=== PATIENT | male | born 1935 | race Hispanic/Latino ===

== ENCOUNTER 2016-08-14 19:09 | Inpatient (IN) | payer MEDICARE, OTHER ==
[~2016-08-14] VITALS: Ht 170.2 cm; Wt 68.5 kg
[2016-08-14 19:23] VITALS: BP 166/61; PULSE 51; RESP 16; O2SAT 98
[2016-08-14 19:29] VITALS: BP 166/61; PULSE 54; RESP 18; O2SAT 98
--- NOTE | 2016-08-14 21:02 | ED.REPORT ---
HPI-Abd Pain M 40 and Over Date of Service Aug 14, 2016 ED Provider: Dr. Rick Gamez M.D. An 81 year old male with metastatic prostate cancer presents to the ED via EMS with constipation worsening two days ago. The patient also reports nausea, abdominal pain, lower back pain, loss of appetite, and reduced liquid intake. He denies hematuria, dysuria, hematochezia, recent injury/trauma, or other symptoms. The patient has taken stool softeners with no relief. He normally takes chronic pain medication but has not been doing so over the past two days. EMS found the patient with a BP of 153/64 and otherwise normal vital signs. He is visiting the area from [place]. Nursing Notes Stated Complaint: LOW BACK PAIN Chief Complaint: Male Abdominal Pain Nursing Notes Reviewed: Yes Allergies: Coded Allergies: No Known Allergies (Unverified , 08/14/16) Scheduled Abiraterone Acetate (Zytiga) 250 Mg Tablet 1,000 MG PO DAILY Aspirin (Aspirin) 81 Mg Tablet 81 MG PO DAILY Fluticasone Propionate (Fluticasone Propionate) 50 Mcg/Actuation [place].susp 15.8 ML NS DAILY Hydrochlorothiazide (Hydrochlorothiazide) 25 Mg Tablet 25 MG PO DAILY Latanoprost (Latanoprost) 2.5 Ml Drops 1 GTT BOTH_EYES HS [place]-3 Fatty Acids (Fish Oil) 500 Mg Capsule.dr 2,000 MG PO BID Oxybutynin Chloride (Oxybutynin Chloride) 5 Mg Tablet 5 MG PO TID Potassium Chloride (Potassium Chloride) 20 Meq Tab.er.prt 40 MEQ PO DAILY TAKE WITH FOOD Prednisone (PredniSONE) 5 Mg Tab 5 MG PO BID Simvastatin (Simvastatin) 40 Mg Tablet 40 MG PO HS Tamsulosin (Flomax) 0.4 Mg Capsule 0.8 MG PO HS Valsartan (Valsartan) 80 Mg Tablet 80 MG PO DAILY Scheduled PRN Carboxymethylcellulose Sodium (Lubricant Eye Drops) 15 Ml Drops 15 ML BOTH_EYES QID PRN PRN For Eye Irritation Saliva Stimulant Agents Comb.3 (Biotene Moisturizing Mouth) 44.3 Ml [place] 44.3 ML MM QID PRN PRN dry mouth General Time Seen by MD: 21:02 Chief Complaint Constipation Hx Obtained From: Patient Arrived By: Ambulance Sudden in Onset?: No Onset Occurred: 2 days ago (Worsening) Symptom Duration: Since onset Progression since Onset: Gradually worsening Location: : Back: Diffuse Quality: Painful Severity: Current: Moderate Severity: Maximum: Moderate Associated with: Reports: Back pain, Nausea, Denies: Fever, Hematochezia, Hematuria Pertinent Negative: Relieved by nothing Recent Healthcare: No recent doctor visit Similar Sx Previous: Yes Past Medical History Past Medical History Metastatic prostate cancer Past Surgical History None reported Smoking History Unknown if Ever Smoker Social History Other Social History: Good social support, Visiting locally (From [place]) Ambulatory Status Independent Review of Systems Review of Systems Note: + Loss of appetite, reduced liquid intake Constitutional: Denies: Fever Respiratory: Denies: Non-productive cough, Shortness of breath GI: Reports: Abdominal pain, Constipation, Nausea, Denies: Hematochezia Male: Denies Dysuria, Denies Hematuria Musculoskeletal: Reports: Back pain Complete sys rev & neg: except as marked. Physical Exam Initial Vital Signs Vital Signs (First) Date Time Temp Pulse Resp B/P Pulse Ox O2 Delivery O2 Flow Rate FiO2 08/14/16 19:23 37.7 51 16 166/61 98 Room Air Initial VS: Reviewed Head / Eyes: Atraumatic, Normocephalic ENT: Conjunctiva normal, No scleral icterus Skin: Warm, Dry, No cyanosis Neurologic: Alert, Oriented, Nonfocal Psychiatric: Mood/affect normal, Behavior normal, Normal thought content General/Constitutional: Awake, Alert, No acute distress Distress / Hydration: Positive: Dehydration mild Respiratory / Chest: Breath sounds NL, Breath sounds = bilat, No respiratory distress Cardiovascular: Heart rate NL, Regular rhythm, Heart sounds NL Abdomen: Soft, Non-tender Back: Full range of motion, No midline vertebral tend Flank / Spine / Paraspinal: Positive: Lumbar paraspinal tend... Interpretation & Diagnostics Lab Results Interpretation Result Diagram: 08/15/16 0530 08/14/16 2111 Test 08/14/16 21:11 Lipase 30U/L (13-60) Hold [place] Top Tube Received (Received) ECG Interpretation ECG Interpretation: Sinus rhythm rate 54 LVH Time: 22:18 Interpreted by: ED physician X-Ray Abdominal Interpretation ACUTE ABDOMINAL SERIES: IMPRESSION: Normal bowel gas pattern. Moderate amount of stool in colon. Dictated by: Gabbie Sommer M.D. on 08/14/2016 at 21:58 Interpretation / Wet Read by: Interpret - Radiologist CT Abd / Pelvis Interpretation CONCLUSION: Extensive metastatic disease throughout the bones. There are extensive lytic lesions within the T10 vertebra extending into the adjacent soft tissues and the spinal canal compression the cord. Findings discussed with Dr. Gamez at 08/15/2016 - 1:34:08 AM PDT Study type: Abdominal CT IV contrast Interpretation / Wet Read by: Interpret - Radiologist, Discussed w radiologist Re-Eval/Medical Decision Med Decision/Clinical Course 81-year-old visiting from [place] presents with constipation on chronic pain meds. He has noted some abdominal pain radiating through to his back, decreased by mouth intake with some nausea, and is not in fact taken any of his pain meds nor his other prescribed meds for the past 3-4 days. He denies any numbness or weakness distally. Denies incontinence. His distal neuro is negative. X-ray of the abdomen shows abundant stool but no abnormal bowel findings. There are lytic lesions in the right hip. CT was done to evaluate his abdomen and note is made of widespread metastatic disease, including a lytic lesion in the T10 with some intrusion into the spinal canal. He is admitted now primarily for his multiple electrolyte abnormalities including hyponatremia, hypokalemia, dehydration due to poor by mouth intake. He may require radiation therapy to his T10 lesion, although he is neurologically intact at this point. Family does not appear to understand the gravity of his disease at this point. Time of Eval: 23:37 Patient Status: Condition improved Re-Evaluation/Progress Note: Discussed with patient x-ray and lab results, diagnosis, and plan for admit. Patient agrees with plan for care and all questions were addressed. Consultation : Referral / Consult Name: Ayse Silver DO Consulted With: Hospitalist Call Returned at: 23:48 Wheelchair Van Operator First Responder: Agrees with eval, Agrees with plan, Accepts admit Counseled Regarding: Diagnosis, Lab results, Need for admission Discharge & Departure Shift Change Sign-Out Response to Therapy: Unchanged, Improved Primary Impression: Hyponatremia Additional Impressions: Hypokalemia Constipation Constipation type: unspecified constipation type Qualified Code: K59.00 - Constipation, unspecified Abdominal pain Abdominal location: generalized Qualified Code: R10.84 - Generalized abdominal pain Prostate cancer metastatic to bone Disposition: ADMITTED TO HOSPITAL Vital Signs - All Vital Signs Date Time Temp Pulse Resp B/P Pulse Ox O2 Delivery O2 Flow Rate FiO2 08/14/16 23:16 55 17 156/45 96 Room Air 08/14/16 19:29 37.7 54 18 166/61 98 Room Air 08/14/16 19:23 37.7 51 16 166/61 98 Room Air )( All Prior VS Reviewed: Yes Condition: Improved Referrals: [facility] (PCP) Scribe Attestation Portions of this note were transcribed by Coral Collins. I, Dr. Gamez, personally performed the history, physical exam, and medical decision-making; I reviewed and confirmed the accuracy of the information in the transcribed note. Signed by: Kalpesh Salazar, 08/15/2016, 02:05 copies to: [facility]Rick Proctor MD Aug 14, 2016 21:02 CORAL COLLINS Aug 14, 2016 22:06 Interpretation / Wet Read by: Interpret - Radiologist CT Abd / Pelvis Interpretation CONCLUSION: Extensive metastatic disease throughout the bones. There are extensive lytic lesions within the T10 vertebra extending into the adjacent soft tissues and the spinal canal compression the cord. Findings discussed with Dr. Gamez at 08/15/2016 - 1:34:08 AM PDT Study type: Abdominal CT IV contrast Interpretation / Wet Read by: Interpret - Radiologist, Discussed w radiologist Re-Eval/Medical Decision Time of Eval: 23:37 Patient Status: Condition improved Re-Evaluation/Progress Note: Discussed with patient x-ray and lab results, diagnosis, and plan for admit. Patient agrees with plan for care and all questions were addressed. Consultation : Referral / Consult Name: Ayse Silver DO Consulted With: Hospitalist Call Returned at: 23:48 Wheelchair Van Operator First Responder: Agrees with eval, Agrees with plan, Accepts admit Counseled Regarding: Diagnosis, Lab results, Need for admission Discharge & Departure Primary Impression: Hyponatremia Additional Impressions: Hypokalemia Constipation Constipation type: unspecified constipation type Qualified Code: K59.00 - Constipation, unspecified Abdominal pain Abdominal location: generalized Qualified Code: R10.84 - Generalized abdominal pain Prostate cancer metastatic to bone Disposition: ADMITTED TO HOSPITAL Vital Signs - All Vital Signs Date Time Temp Pulse Resp B/P Pulse Ox O2 Delivery O2 Flow Rate FiO2 08/14/16 23:16 55 17 156/45 96 Room Air 08/14/16 19:29 37.7 54 18 166/61 98 Room Air 08/14/16 19:23 37.7 51 16 166/61 98 Room Air )( All Prior VS Reviewed: Yes Condition: Improved Referrals: [facility] (PCP) Scribe Attestation Portions of this note were transcribed by Coral Collins. I, Dr. Gamez, personally performed the history, physical exam, and medical decision-making; I reviewed and confirmed the accuracy of the information in the transcribed note. Signed by: Kalpesh Salazar, 08/15/2016, 02:05 copies to: [facility],Rick Proctor MD Aug 14, 2016 21:02 CORAL COLLINS Aug 14, 2016 22:06
[2016-08-14] MEDS ORDERED: HYDROcodone-APAP 5-325 mg Tablet PO ONE (21:15)
[2016-08-14 21:32] LABS: BASOPHILS % (AUTO) 0.2 % (0-3); EOSINOPHILS % (AUTO) 0.8 % (0-5); MONOCYTES % (AUTO) 10.7 % (4-12); Mean Corpuscular Hemoglobin 29.9 pg (27.0-35.0); Mean Corpuscular Volume 83.5 fL (81-100); NEUTROPHILS % (AUTO) 70.2 % (40-74); Platelet Count 180 bil/L (150-400)
[2016-08-14 21:59] LABS: Magnesium 2.2 mg/dL (1.6-2.6)
--- NOTE | 2016-08-14 22:03 | DRSVH ---
PROCEDURE: X-RAY ACUTE ABDOMINAL SERIES ([id number]) INDICATIONS: Abdominal pain, constipation, prostate ca TECHNIQUE: One view chest and two views of the abdomen were acquired. COMPARISON: None. FINDINGS: Surgical changes and devices: None. Chest: Lungs are clear. Heart size is normal. No pleural effusions. No pneumoperitoneum. Abdomen: Bowel gas pattern is normal. Moderate amount of stool in colon. No suspicious calcificatio ns. Visualized solid organ contours appear normal. Bones: No suspicious bony lesions. IMPRESSION: Normal bowel gas pattern. Moderate amount of stool in colon. Dictated by: Gabbie Sommer M.D. on 08/14/2016 at 21:58 Approved by: Gabbie Sommer M.D. on 08/14/2016 at 22:01
[2016-08-14] MEDS ORDERED: 0.9% Sodium Chloride 1,000 ML IV ONE (22:11)
[2016-08-14] MEDS ORDERED: Ondansetron 2 mg/mL 2 mL Inj IVPUSH ONE (22:15)
[2016-08-14] MEDS ORDERED: Pantoprazole 4 mg/mL 10 mL Inj IVPUSH ONE (22:15)
[2016-08-14] MEDS ORDERED: SODIUM CHLORIDE 0.9% IV ONE (22:20)
[2016-08-14] MEDS ORDERED: POTASSIUM CHLORIDE IV ONE (22:20)
[2016-08-14 23:16] VITALS: BP 156/45; PULSE 55; RESP 17; O2SAT 96
[2016-08-15] VITALS (7 sets, daily range): BP systolic 122–182; BP diastolic 58–72; PULSE 51–62; RESP 18; O2SAT 96–97
[2016-08-15] MEDS ORDERED: Ondansetron 2 mg/mL 2 mL Inj IVPUSH PRN (00:40)
[2016-08-15] MEDS ORDERED: Alum-Mag Hydrox-Simeth 30 mL Suspension PO PRN (00:40)
[2016-08-15] MEDS ORDERED: Polyethylene Glycol (PEG) 17 Gm Powder PO PRN (00:40)
--- NOTE | 2016-08-15 01:12 | PCM.HPMED ---
Subjective Date of Service Aug 15, 2016 Primary Provider: Admitting Physician: Ayse Silver DO Primary Care Physician: [facility] Attending Physician: Ayse Silver DO Admit Status: From the Emergency Department, 23-Hour Observation, Remote Telemetry Chief Complaint: Bilateral lower back pain and bilateral lower abdominal pain History of Present Illness: Mr. Jr Ross is an 81 year old male with prostate cancer presents to the ED via EMS with progressively worsening bilateral lower back pain and abdominal pain onset 1.5 week ago. He reports constant, sharp back pain that localizes in the lumbar area bilaterally due does not radiate else where. He also complains of dull bilateral lower abdominal pain, worse on the RLQ. He reports constipation, nausea, vomiting, abdominal pain, lower back pain, and loss of appetite. He passes gas intermittently, but no stool for a week. He attributes this to poor oral intake. He states that he can drink water just fine, but had 2 episodes of vomiting after drinking water in the last week. The patient denies hematuria, dysuria, hematochezia, chest pain, recent injury/trauma, or other symptoms. He denies any chronic pain or similar symptoms in the past.The patient has taken stool softeners with no relief. EMS found the patient with a BP of 153/64 and otherwise normal vital signs. Patient is taking Abiraterone for the prostate cancer. No surgical history. The patient is visiting family in [place] from [place], [place]. In the ED, patient was found to have low-grade temperature of 37.7 and elevated BP 166/61. Otherwise normal vital signs. CBC normal. CMP significant for Na 128 and K 2.5. Also elevated alkaline phosphatase at 380. Abdominal XR did not reveal any obstruction. CT abd and pelvis with contrast pending. Review of Systems: A comprehensive review of systems was conducted with the patient and found to be negative except as above in the History of Present Illness. Allergies Coded Allergies: No Known Allergies (Unverified , 08/14/16) Home Medications Hydrochlorothiazide 25mg 1 tab PO daily Valsartan 160mg 1/2 tab PO daily Oxybutynin 5mg 1 tab PO TID Potassium 20mEq 2 tabs PO daily Prednisone 5mg 1 tab PO BID Simvastatin 80mg 1/2 tab PO HS Tamsulosin 0.4mg 2 cap PO HS Abiraterone 250mg 4 tabs PO daily Vitamin supplements and eye drops. PMH Patient only reports prostate cancer, but he is taking medications for HTN and hyperlipidemia. Surgical History Patient denies Family History Patient does not recall family history when asked Social History Hx Alcohol Use: No Hx Substance Use: No Hx Tobacco Use: No Smoking Status: Never Smoker (he smoked for a few months in his youth) Living Arrangement: with Family Additional Information Patient is visiting family in [place] from [place], [place]. He is ambulating independently at baseline. Exam Vital Signs Vital Sign - Last Date Time Temp Pulse Resp B/P Pulse Ox O2 Delivery O2 Flow Rate FiO2 08/14/16 23:16 55 17 156/45 96 Room Air 08/14/16 19:29 37.7 Intake and Output 08/14/16 08/14/16 08/15/16 Cumulative From/Thru 15:00 23:00 07:00 08/14/16 19:29 - 08/14/16 22:54 Intake Total 1000 ml 1000 ml Balance 1000 ml 1000 ml Intake IV Total 1000 ml 1000 ml Exam General: Well-developed, well-nourished, appears uncomfortable and in mild pain , appropriately interactive HEENT: Normocephalic, atraumatic. External ears without defect. Pupils equal, round, and reactive to light and accommodation. Anicteric sclerae, moist conjunctivae, and no lid lag. Oropharynx free of erythema and cobble stoning with dry mucosa. Neck: Supple with full range of motion. No jugular venous distension. No bruits. No lymphadenopathy or thyromegaly. Cardiovascular: Regular rate and rhythm with no murmurs, rubs, or gallops appreciated Pulmonary: Clear to auscultation bilaterally with no crackles, wheezes, or rhonchi. Normal respiratory effort with no use of accessory muscles. Abdomen: Bowel tones present. Soft, nondistended. Moderate tenderness to palpation in the RUQ and RLQ. Mild tenderness in LLQ. No guarding or rebound tenderness. No hepatosplenomegaly or masses appreciated. No CVA tenderness. Extremities: No clubbing, cyanosis, edema, or lymphadenopathy appreciated. MSK: moderate-severe tenderness to palpation in the bilateral paravertebral muscle from L1-L5. Muscle spasm noted. Skin: Dry skin. Normal temperature, turgor, and texture; no rash, ulcers, or subcutaneous nodules appreciated. Neurological: Cranial nerves grossly intact. Normal muscle strength, tone, and bulk. Reflexes, coordination, and sensory function within normal limits. No known gait impairment. Psychiatric: Normal mood and affect. Alert and oriented to person, place, and time. Lab and Diagnostics Result Diagram: 08/14/16211008/14/162110 X-Rays, CTs and MRIs PROCEDURE: X-RAY ACUTE ABDOMINAL SERIES IMPRESSION: Normal bowel gas pattern. Moderate amount of stool in colon. Dictated by: Gabbie Sommer M.D. on 08/14/2016 at 21:58 Approved by: Gabbie Sommer M.D. on 08/14/2016 at 22:01 Assessment & Plan 81 year old male with prostate cancer presents to the ED via EMS with bilateral lower back pain and abdominal pain for 1.5 week. 1. Hypokalemia, acute, present on admission, active. - K of 2.5 on admission. Patient received 20 mEq of potassium IV in the ED. - EKG normal. - Continue to monitor K and replete if low. 2. Abnormal CT scan, active. - CT abd and pelvis revealed metastatic dz. Formal read by radiology pending. - Consult radiation oncology in the morning. 3. Bilateral lower back pain, acute, present on admission, active. - Likely secondary to bone metastases - CT showed metastasis bone lesions scan. Radiology read pending. - Radiation oncology consult in the AM - T10 lesion. -obtain records from [facility] - No sign of infection. UA negative. - Concerning for bone metastasis as a source of alkaline phosphatase elevated. - Pain is refractory to oral Acetaminophen and [place]. Will have Dilaudid 0.5mg IV available as needed for severe pain. 4. Right lower quadrant abdominal pain, acute, present on admission, active. - Normal abdominal XR with no sign of obstruction. Active bowel sound on exam. - Likely secondary to referral pain from bone metastases. - Miralax and Senna PRN - Pain management 5. Hypertension, chronic, stable. - Elevated BP likely secondary to pain. - Resume home meds: HCTZ 25mg daily and Valsartan. - Continue to monitor vital signs. 6. Prostate cancer, chronic, active. - Follow up with oncology as outpatient. - Resume home Abiraterone and Prednisone - Resume Tamsulosin 7. Urinary incontinence, chronic, presume stable. - Continue Oxybutynin 8. Medication reconciliation: to be done by the day team. Patient is admitted under observation status with expected length of stay less than 2 midnights due to severity of presenting symptoms and complexity of treatment plan. Pain Evaluation: Adequate Pain Control GI Prophylaxis: H2 amilcar VTE Prophylaxis: SCDs Resuscitation Status: CPR: Attempt Resuscitation Attending Statement The patient was seen and examined together with house staff on 08/15/2016 and I agree with the history, exam and plan as outlined in the note above. Bernabe Brown DO Aug 15, 2016 01:12 Ayse Silver DO Aug 15, 2016 04:25
[2016-08-15 01:30] LABS: APPEARANCE,URINE CLEAR (CLEAR,HAZY); COLOR,URINE YELLOW (YELLOW); OCCULT BLOOD,URINE NEGATIVE (NEGATIVE)
[2016-08-15] MEDS ORDERED: HYDROmorphone 0.5 mg/0.5 mL iSecure Syringe IVPUSH PRN (01:55)
[2016-08-15] MEDS: 0.9% Sodium Chloride 1,000 ML IV SCH ×2 (02:46→13:06)
--- NOTE | 2016-08-15 03:14 | NUR ---
Admit Pt admitted to [facility] Rm 1009 from ER at 0135. Pt able to transfer from [facility] with SBA d/t pain, steady on feet. Pt is alert/oriented x3, [place]. Pt reports pain to lower back rated 7/10 and requested stronger pain med than Tylenol. BP elevated along with pain, 182/68. paged and ordered Dilaudid 0.5mg IV q4 hrs. Pt was given Dilaudid and on reassessment, pt is resting, eyes closed and appears more comfortable. Pt is NPO. IVF NS at 100ml/hr. Pt placed on tele and has been sinus bashir 50s. Pt was oriented to room and call light.
[2016-08-15] MEDS ORDERED: Potassium Chloride 20 mEq SR Tablet PO ONE ×2 (04:30→07:40)
[2016-08-15] MEDS ORDERED: SIMV40TA5 PO (04:53)
[2016-08-15] MEDS ORDERED: SALI45SP MM (04:53)
[2016-08-15] MEDS ORDERED: ABIR250T PO (04:53)
[2016-08-15] MEDS ORDERED: TAMS0.4C98 PO (04:53)
[2016-08-15] MEDS ORDERED: FLUT15.88 NS (04:53)
[2016-08-15] MEDS ORDERED: LATA2.5D6 BOTH_EYES (04:53)
[2016-08-15] MEDS ORDERED: OXYB5TAB10 PO (04:53)
[2016-08-15] MEDS ORDERED: OMEG500C PO (04:53)
[2016-08-15] MEDS ORDERED: PRD5T PO (04:53)
[2016-08-15] MEDS ORDERED: POTA20TA16 PO (04:53)
[2016-08-15] MEDS ORDERED: HYDR25TA4 PO (04:53)
[2016-08-15] MEDS ORDERED: CARB15DR78 BOTH_EYES (04:53)
[2016-08-15] MEDS ORDERED: VALS80TA25 PO (04:53)
[2016-08-15] MEDS ORDERED: ASPI-973 PO (04:53)
[2016-08-15 05:48] LABS: BASOPHILS % (AUTO) 0.2 % (0-3); EOSINOPHILS % (AUTO) 1.5 % (0-5); MONOCYTES % (AUTO) 12.2 % (4-12); Mean Corpuscular Hemoglobin 29.9 pg (27.0-35.0); Mean Corpuscular Volume 84.5 fL (81-100); NEUTROPHILS % (AUTO) 64.5 % (40-74); Platelet Count 165 bil/L (150-400)
[2016-08-15] MEDS: HYDROmorphone 0.5 mg/0.5 mL iSecure Syringe IVPUSH PRN ×6 (05:54→21:10)
[2016-08-15 06:33] LABS: Magnesium 2.1 mg/dL (1.6-2.6)
[2016-08-15] MEDS ORDERED: Senna-Docusate 8.6-50 mg Tablet PO SCH (08:30)
[2016-08-15] MEDS ORDERED: Polyethylene Glycol (PEG) 17 Gm Powder PO SCH (08:30)
--- NOTE | 2016-08-15 08:45 | DRSVH ---
PROCEDURE: CT ABDOMEN AND PELVIS WITH CONTRAST ([id number]) INDICATIONS: abd pain, back pain, prostate ca TECHNIQUE: After the administration of intravenous contrast, 5 mm thick sections acquired from the diaphragm to the symphysis. 5 mm coronal and sagittal reformats were acquired. For radiation dose reduction, the following was used: automated exposure control, adjustment of mA and/or kV according to patient siz e. COMPARISON: None. FINDINGS: Image quality: Excellent. ABDOMEN: Lung bases: Mild dependent bibasilar atelectasis is present. Lung bases are otherwise clear. Heart size is normal. Solid organs: Scattered right and left hepatic lobe cysts are present. Liver and spleen are otherwis e normal in size and enhancement. Gallbladder is within normal limits. Biliary system is non dilate d. Pancreas enhances normally. No adrenal nodules. A peripherally calcified exophytic low-density focus protrudes posteriorly from the inferior pole left kidney, measuring 16 mm craniocaudal by 15 mm transverse. Kidneys demonstrate otherwise normal size and enhancement, without hydronephrosis. Peritoneum and bowel: A small hiatal hernia is present. Bowel loops demonstrate normal wall thickness and caliber. No free fluid or air. Nodes and vessels: No retroperitoneal or mesenteric adenopathy by size criteria. Aorta and inferior vena cava are normal in size. Miscellaneous: No ventral hernias. PELVIS: Genitourinary: Bladder wall thickness is normal. Prostate is enlarged and heterogeneous. Miscellaneous: No inguinal hernias or adenopathy. Bones: Multiple lytic and sclerotic foci throughout the visualized skeleton are present. Within the l eft aspect of the T10 vertebral body, there is an incompletely visualized lytic focus measuring at le ast 52 mm anteroposterior by 43 mm transverse, which extends into the paravertebral soft tissues, as well as the epidural space, and causes severe canal stenosis. No vertebral body compression fractures . IMPRESSION: 1. Severe bony metastatic disease. 2. Incompletely visualized lytic T10 metastasis, which demonstrates extraosseous paraspinous and epid ural tumor spread, causing severe canal stenosis. 3. Small hiatal hernia. 4. Prostate enlargement. 5. Indeterminate calcified focus protruding posteriorly from the inferior pole left kidney. This coul d be followed with serial CT or ultrasound examinations beginning in 3 months, if clinically indicate d. 6. Concordant with preliminary interpretation. Dictated by: Yoselyn Herndon M.D. on 08/15/2016 at 8:37 Approved by: Yoselyn Herndon M.D. on 08/15/2016 at 8:44
[2016-08-15] MEDS ORDERED: HYDROmorphone 0.5 mg/0.5 mL iSecure Syringe IVPUSH ONE (09:10)
--- NOTE | 2016-08-15 14:34 | DRSVH ---
PROCEDURE: CT CHEST WITH CONTRAST ([id number]) INDICATIONS: check for mets, extension of tumor TECHNIQUE: After the administration of intravenous contrast, 5 mm thick sections acquired from the pulmonary api jonathan to the posterior costophrenic angles. 7 mm thick coronal and sagittal MIP reformats were acquire d. For radiation dose reduction, the following was used: automated exposure control, adjustment of mA and/or kV according to patient size. COMPARISON: [facility], CT, CT ABD PELVIS W CON, 08/15/2016, 1:10. FINDINGS: Image quality: Excellent. Lungs and pleura: Clustered ill-defined nodular densities within the right upper lobe anteroinferiorl y are present, adjacent to the minor fissure, spanning roughly 31 mm. 4 mm diameter nodule within the left upper lobe posteriorly. Calcified granuloma within the posterior aspect of the left upper lobe. Small bilateral pleural effusions are present. No pneumothorax. Central and peripheral airways are patent and normal in caliber. Mediastinum: Heart size is normal. No pericardial effusion. No mediastinal or hilar adenopathy by size criteria. Thoracic aorta and central pulmonary arteries are normal in size. Esophagus is henrik l in caliber. No change in small hiatal hernia. Bones and chest wall: No multiple lytic and sclerotic foci within the visualized osseous structures are present, as before. As before, there is a 60 mm lytic focus within the T10 vertebral body, which demonstrates extraosseous paraspinous and epidural tumor spread, and severe consequent canal stenosis . No vertebral body compression fractures. No axillary or supraclavicular adenopathy by size criteri a. Thyroid gland is within normal limits. Abdomen: Visualized upper abdominal solid organs appear normal. Upper abdominal bowel loops are nor mal in caliber. IMPRESSION: 1. Severe diffuse bony metastatic disease, including the known T10 vertebral body focus, which demons trates extraosseous paraspinal and epidural tumor spread, with severe consequent canal stenosis. 2. Small bilateral pleural effusions. 3. Remote granulomatous disease. 4. Ill-defined clustered nodular densities within the right upper lobe anteroinferiorly. Findings may be due to focal pneumonitis. Followup CT imaging is recommended to ensure resolution, and to exclude underlying neoplasm. 5. Indeterminate left upper lobe 4 mm nodules; recommend attention to this region on followup imaging . 6. No change in small hiatal hernia. Dictated by: Yoselyn Herndon M.D. on 08/15/2016 at 14:28 Approved by: Yoselyn Herndon M.D. on 08/15/2016 at 14:33
--- NOTE | 2016-08-15 15:43 | NUR ---
PAIN Patient complains of constant, sharp mid-lower back pain, 12/05. Administered Dilaudid 0.5mg IV, which didn't bring pain level down. Administered another 0.5mg IV. MD aware and increased frequency of pain medication to Q2H. Tried to reposition patient for better pain control. Patient able to rest and sleep in between pain medications. Family at bedside. Care continues.
--- NOTE | 2016-08-15 16:13 | NUR ---
Social Work-initial assessment: Data & Assessment: See initial assessment. EMR Reviewed. Pt is a 81 y/o female who was admitted on 08/15/16 for Hyponatremia, Constipation and Hypokalemia per H&P. Pt's insurance is [employer] and goes [facility] for [facility]CP. SW met with pt and pt's daughter Salima Narayan to discuss discharge planning, SW role explained and initial assessment complete. Pt is alert and oriented x3. Pt resides at home alone in a single level home with three steps to enter where pt remains independent with basic ADLs. Patient lives in [place] and was here visiting his daughter. Patient can discharge to his daughter's house if needed. Pt is independent at baseline and does drive. Pt has had HH in the past but does not remember the name. Patient has no SNF history. Pt has completed DPOA/ advanced directive and SW requested a copy. 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 Patient's insurance is [employer]. Pt's family to provide transport home at discharge. Patient wants to return to [place] via airplane when discharged if possible. Patient's friend will be with him on the airplane. Patient can discharge to his daughter's home if needed. SW provided phone number and plan on white board in room. SW will continue to follow. Plan: Pt to likely discharge home to [place] alone or home with daughter. Pt's family is supportive. SW will continue to follow. Marshall Olmedo LMSW, ISAIAS Addendum: 08/15/16 at 1624 by MARSHALL OLMEDO SS Amended: Links added.
--- NOTE | 2016-08-15 18:09 | NUR ---
Case Management: IMM explained to patient and family at 1730, all questions answered. IMM signed by daughter POA, signed copy in chart, copy given to daughter. Nereyda Delgado RN
[2016-08-15] MEDS: Omega-3 Fatty Acids 1,000 mg Capsule PO SCH (20:30)
[2016-08-15] MEDS ORDERED: predniSONE 5 mg Tablet PO SCH (20:30)
--- NOTE | 2016-08-15 20:34 | DRSVH ---
PROCEDURE: MRI THORACIC SPINE WITHOUT CONTRAST ([id number]) INDICATIONS: T-10 LESION TECHNIQUE: Noncontrast sagittal T1 spine echo and T2 fast spin echo, sagittal STIR, axial T1 and T2 fast spin ec ho through the thoracic spine. COMPARISON: [facility], CT, CT CHEST W CON, 08/15/2016, 14:14. FINDINGS: The marrow has an overall heterogeneous appearance. Multiple infiltrative marrow lesions are visualiz ed, but are incompletely characterized in the absence of intravenous contrast. These include T7-T12. No wedge compression deformities. An expansile marrow lesion spans T9 and T10 and extends into the ce ntral canal with severe canal stenosis and deformity of the cord. There is increased T2/STIR signal w ithin the cord in this region. It is unclear whether there is intramedullary extension of tumor given the lack of intravenous contrast. No other canal stenosis of the lumbar spine. Severe left neurofora sumanth narrowing is present at T10-T11. The bilateral neuroforamina appear otherwise patent. There are small bilateral pleural effusions. IMPRESSION: 1. Multiple expansile lytic lesions within the thoracic spine which are incompletely characterized gi ottoniel the lack of intravenous contrast. Unfortunately, the patient refused the contrast portion of the exam due to pain. 2. Expansile lesion at T10 with resultant severe canal stenosis and marked deformity of the cord. Cor d signal abnormality in this region suggests myelomalacia. There is no definite intramedullary extens ion of tumor; however lack of intravenous contrast limits evaluation. If further characterization is warranted, contrast-enhanced MRI with analgesia or sedation may be helpful to characterize findings. 3. No other canal stenosis of the thoracic spine. 4. Severe left neuroforaminal narrowing at T10-T11. 5. Small pleural effusions. Dictated by: Valerie Chinchilla M.D. on 08/15/2016 at 19:34 Approved by: Valerie Chinchilla M.D. on 08/15/2016 at 20:33
[2016-08-16] MEDS: 0.9% Sodium Chloride 1,000 ML IV SCH ×3 (00:23→20:29)
[2016-08-16 01:01] VITALS: BP 135/56; PULSE 54; RESP 16; O2SAT 98
--- NOTE | 2016-08-16 02:54 | CONS ---
[address] [address] CONSULTATION REPORT PATIENT: VALENCIA HAN : 1935 MR#: [id number] ADMIT: 08/15/2016 JOB ID: [id number] DATE OF SERVICE: 08/15/2016 DIAGNOSIS: Metastatic prostate cancer. REFERRING PHYSICIAN: Dr. Forman on hospitalist team tracy. HISTORY OF PRESENT ILLNESS: The patient is a delightful 81-year-old gentleman who lives in [place], [place], who was diagnosed with prostate cancer 18 years ago. It is unclear how his original prostate cancer was treated, however, he was reportedly in remission until 1-1/2 years ago when he was diagnosed with metastatic prostate cancer. He has been followed by an oncologist at [facility] in [place], [place], however, we do not have records from his oncology treatment there but are awaiting these. He has reportedly been on abiraterone, but he could not with certainty tell me whether or not he has previously received radiation due to his somnolence from pain medication. The patient noted increased back pain approximately two weeks ago, however, on August 11, he flew to [place] to visit with his daughter who lives near [place]. While sightseeing on Monday he felt that his back pain worsened, which also caused nausea and vomiting. Therefore, he returned to his daughter's home and was somnolent most of the weekend and stayed in bed. Ultimately, on Monday, the patient was brought to the emergency department to address his worsening back pain, constipation, nausea, vomiting and loss of appetite. He was admitted to the hospital last evening for further workup. A CT scan of the abdomen and pelvis with contrast was performed late Monday evening, which identified severe metastatic bone disease with a lytic T10 metastasis demonstrating extraosseous, paraspinous and epidural tumor spread causing severe canal stenosis. His prostate was enlarged and an indeterminate calcified focus was protruding posteriorly from the inferior pole of the left kidney. The patient was recommended to undergo a thoracic and lumbar MRI due to these findings, however, was found to have a penile implant of uncertain metallic composition; and therefore, his inpatient team awaited records of his penile implant before an MRI can be ordered. In the meantime, a CT scan of the chest with contrast was performed as the T10 tumor was truncated on the CT scan of the abdomen and pelvis. The CT scan of his chest identified ill-defined nodular densities in the right upper lobe spanning 3.1 cm. A nodule was also present in the left upper lobe measuring 4 mm. Additional diffuse and severe metastatic bone disease was noted, including the T10 vertebral body lesion which was completely visualized on the latter scan. It was found to measure 6 cm. Radiation Oncology has been consulted to assess whether or not the patient would be a candidate for urgent radiation treatment to the T10 lesion. PAST MEDICAL HISTORY: Significant for hypertension, hyperlipidemia, and metastatic prostate cancer. PAST SURGICAL HISTORY: Patient denies. CURRENT MEDICATIONS: Include hydrochlorothiazide, valsartan, oxybutynin, potassium, prednisone, simvastatin, tamsulosin, abiraterone, vitamin supplements, and eye drops. MEDICATION ALLERGIES: NKDA. FAMILY HISTORY: Noncontributory. SOCIAL HISTORY: The patient is , his approximately three years ago. He lives near [place], [place]. His treatment for his prostate cancer has been of [facility] in [place], [place]. He lives independently. His family includes two daughters, one who lives near him in [place] and another who lives on [place]. He is a never smoker. No history of heavy alcohol use or illicit drug use. REVIEW OF SYSTEMS: The patient mainly complains of only the symptoms mentioned in the HPI. PHYSICAL EXAMINATION: Temperature is 37.7, heart rate 61, blood pressure 166/61, respiratory rate is 16. Oxygen saturation is 98% on room air. In general, the patient is extremely somnolent, lying in bed in his hospital room. HEENT: Nonfocal. Cardiovascular exam: Regular rate and rhythm. No murmurs, gallops, rubs. Pulmonary: Clear to auscultation bilaterally. Abdomen: Soft, nontender. Extremities: No edema. Neuro exam: Cranial nerves are grossly intact. Strength is 5/5 in upper and lower extremities. Sensation exam: No deficits. Gait: Not observed. ASSESSMENT AND PLAN: The patient is a very pleasant 81-year-old gentleman with a history of prostate cancer diagnosed and treated 18 years ago. This was reportedly in remission until 1-1/2 years ago when he was found to have metastatic disease. 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 The most severe lesion is at T10 vertebral body which shows a large mass up to 6 cm with epidural and paraspinal extension which may be largely responsible for his pain in the bilateral lower back region. The patient was unable to confirm whether or not he has received radiation therapy before; therefore, we do await records from his [facility] treatment. These should be forthcoming late Monday or early Monday. An MRI scan of the thoracic and lumbar spine is planned for Monday to better assess his thoracic and lumbar spinal involvement with his tumor. We discussed urgent treatment to the T10 lesion with his family today and they are amenable to pursuing this here. Therefore, I did review the consent form for treatment to the thoracic spine with his family today, and his daughter signed consent as she is his power of sports attorney. The hope is we will be able to acquire his [facility] records to know whether or not this area has previously been treated with radiation before proceeding. Therefore, I await a call from Dr. Racquel Forman as far as when these records arrive. Thank you for the opportunity to participate in his oncologic management. We are available at any time, and I can be reached on my cell phone at [phone] to discuss specifics of this case. ANGELINA
--- NOTE | 2016-08-16 03:34 | NUR ---
Pain/activity Upon assessment, pt found sleeping but awakened easily and reported 6/10 pain to back. Dilaudid 1mg IV administered and upon reassessment, pt appears comfortable and resting. CPOx placed and pt put on 2L 02 initially to keep O2 sats above 92%. Then decreased to 1L O2 via NC. Pt awakens easily but is drowsy and forgetful at times, holding further pain meds until pt is more alert. [place] alarm placed. Pt temp was 37.1 and pt was encouraged to take deep breathes. Continue to monitor.
[2016-08-16] MEDS: HYDROmorphone 0.5 mg/0.5 mL iSecure Syringe IVPUSH PRN ×4 (04:24→16:54)
--- NOTE | 2016-08-16 05:43 | PCM.PNMED ---
Subjective Date of Service Aug 16, 2016 Subjective Patient is still in a lot pain over his thoracolumbar spine, needing 1mg dialudid IV Q2H. Daughter from [place] came in yesterday and says she is the POA, her dad did not keep her informed of his health, she had only accidentally found out that he had prostate cancer for 18 yrs, which recurred 1.5 yrs ago. She promises to do her best to get [facility]. Yesterday Dr. Neva Hughes from [facility] saw the patient, wanted a MRI thoraco lumbar W but patient was unable to complete the study due to pain. She was also wondering if he has had radiation to his spine in [place] based on her interview. Patient[facility] were obtained, it appears that he has seen oncology for a number of years and was treated with casodex, zytiga and finasteride. Per last year CT/MRI he did not have epidural compression or spinal cord compression. Palliative care is consulted and they changed his pain meds to fentanyl patch, PO oxycodone and PRN dilaudid. He is feeling much better today, says he has watery BM twice last night. He wants to try a dulcolax supp. He denies fevers, chills, nausea, vomiting. Daughter says he does not eat much. Exam Vital Signs Vital Sign - Last Date Time Temp Pulse Resp B/P Pulse Ox O2 Delivery O2 Flow Rate FiO2 08/16/16 01:01 37.4 54 16 135/56 98 Nasal Cannula 2.00 Intake and Output 08/15/16 08/15/16 08/16/16 Cumulative From/Thru 15:00 23:00 07:00 08/14/16 19:29 - 08/16/16 04:40 Intake Total 0 ml 2266 ml 997 ml 4502 ml Output Total 400 ml 1100 ml 1500 ml Balance -400 ml 1166 ml 997 ml 3002 ml Intake Oral 0 ml 1200 ml 1200 ml IV Total 1066 ml 997 ml 3302 ml Output Urine Total 400 ml 1100 ml 1500 ml # Bowel Movements 0 0 Exam General: No acute distress HEENT: Normocephalic atraumatic Eyes: [place] conjunctivae. No ptosis, PERRL NEck: No masses, trachea midline. No thyromegaly Lungs: CTA with normal respiratory effort CV: RRR, no murmurs/rubs/gallops, GI: Soft, non-tender with no hepatosplenomegaly MSK: no digital cyanosis Skin: Warm and dry. Psych: A&O X3, with approprate affect Lab and Diagnostics Result Diagram: 08/15/16 0530 08/15/16 2030 X-Rays, CTs and MRIs PROCEDURE: X-RAY ACUTE ABDOMINAL SERIES IMPRESSION: Normal bowel gas pattern. Moderate amount of stool in colon. Dictated by: Gabbie Sommer M.D. on 08/14/2016 at 21:58 Approved by: Gabbie Sommer M.D. on 08/14/2016 at 22:01 Assessment & Plan 81 year old male with prostate cancer presents to the ED via EMS with bilateral lower back pain and abdominal pain for 1.5 week. 1. Hypokalemia, acute, present on admission, active. - K of 2.5 on admission. Patient received 20 mEq of potassium IV in the ED. - EKG normal. - Continue to monitor K and replete if low. 2. 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 Several years however this is the first time spinal cord compression was noted and a CT scan (during this admission) - Radiation oncologist consulted: They plan to start radiation within a day or so for pain relief. Spoke with radiation oncologist on-call today and he feels he can start by radiating that he can area that is causing the spinal cord compression And repeat scans as needed a follow-up therapy is needed. For now the plan is for the patient to completing of radiation to get some level of pain relief and then possibly plan trip back to [place] - Palliative care managing his pain medications, he appears to be comfortable on fentanyl patch. They also started him on dexamethasone and discontinue prednisone. 3. Bilateral lower back pain, acute, present on admission, active. - Concerning for bone metastasis as a source of alkaline phosphatase elevated. - Pain is refractory to oral Acetaminophen and [place]. - Pain control for palliative care 4. Right lower quadrant abdominal pain, acute, present on admission, active: Moderate amount of stool noted on his CT scan - Normal abdominal XR with no sign of obstruction. Active bowel sound on exam. - Likely secondary to referral pain from bone metastases. - Miralax and Senna PRN. Added Dulcolax when necessary suppository. - Pain management 5. Hypertension, chronic, stable. - Elevated BP likely secondary to pain. - Resume home meds: HCTZ 25mg daily and Valsartan. - Continue to monitor vital signs. 6. Prostate cancer, chronic, active. - Follow up with oncology as outpatient. - Continue e home Abiraterone -Continue Tamsulosin 7. Urinary incontinence, chronic, presume stable. - Continue Oxybutynin Patient is admitted under observation status with expected length of stay less than 2 midnights due to severity of presenting symptoms and complexity of treatment plan. GI Prophylaxis: H2 amilcar VTE Prophylaxis: Sub-Q Heparin (Unfractionated), SCDs VTE Mechanical Devices: Intermittant Pneumatic CD Resuscitation Status: DNR/DNI:Do Not Resuscitate/Intubate Racquel Forman DO Aug 16, 2016 05:43
[2016-08-16 06:11] LABS: BASOPHILS % (AUTO) 0.3 % (0-3); EOSINOPHILS % (AUTO) 0.8 % (0-5); Mean Corpuscular Hemoglobin 29.9 pg (27.0-35.0); Mean Corpuscular Volume 86.3 fL (81-100); NEUTROPHILS % (AUTO) 82.5 % (40-74); Platelet Count 161 bil/L (150-400)
[2016-08-16 06:13] VITALS: BP 147/64; PULSE 69; RESP 16; O2SAT 96
[2016-08-16] MEDS ORDERED: Potassium Chloride 20 mEq SR Tablet PO ONE (07:55)
[2016-08-16] MEDS ORDERED: Potassium Chloride 20 mEq SR Tablet PO SCH (08:30)
[2016-08-16] MEDS ORDERED: Dexamethasone Inj 8 MG in 0.9% Sodium Chloride-Pha MIX 50 ML IV ONE (08:35)
--- NOTE | 2016-08-16 08:45 | NUR ---
Spoke with Dee at [facility] patient [facility] in [place] and this patient is 10% service connected. Patient is registered through another [facility] location.
[2016-08-16] MEDS: Omega-3 Fatty Acids 1,000 mg Capsule PO SCH ×2 (09:57→20:33)
[2016-08-16] MEDS: Fluticasone 0.05% 15 Spray/2 Gm 16 Gm Nasal Spray NASAL SCH (09:58)
[2016-08-16 10:23] VITALS: PULSE 59
--- NOTE | 2016-08-16 10:46 | PCM.CONPAL ---
Date of Service Aug 16, 2016 Date of Hospital Admission: Aug 15, 2016 at 00:45 Date of Palliative Consult: Aug 16, 2016 Requesting Provider: Racquel Forman DO Reason Palliative Care Consult: Pain, Goals of Care Discussion Reason for Consultation Palliative Care received order from Dr Forman 08/16/16 to assist with pain management. Patient is an 81 year old man with hx of prostate cancer. He was admitted 08/15/16 due to lower back pain and abdominal pain. Hospital Unit @time of consult: Orthopedic/Surgical Care (Room 1009) Palliative Care Recommendation The patient is a very pleasant 81-year-old gentleman with a history of prostate cancer diagnosed and treated 18 years ago. This was reportedly in remission until 1-1/2 years ago when he was found to have metastatic disease. 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 The most severe lesion is at T10 vertebral body which shows a large mass up to 6 cm with epidural and paraspinal extension which may be largely responsible for his pain in the bilateral lower back region. Dr. Gutierrez (radiation oncology) saw him 08/15 and her team was waiting for medical records from [place] to find out whether he has had prior radiation therapy. Subsequently, [place] heme/onco records arrived today. Mr. oRss started seeing Dr. Susan Arreaga 10/02/2014 for his prostate cancer recurrence at [facility], and was treated only with ADT (androgen deprivation therapy) in the form of leuprolide injections which worked for some months. Then the cancer stopped responding to it, and he was started on Zytiga (abiraterone acetate). He has not had prior radiation therapy per these [facility] records. Plan is that he will go for simulation today and start his radiation on 08/17. He will need 10 sessions of radiation therapy, per discussion with Dr. Aj today. Summary of palliative recommendations: Symptom management: Pt had significant pain since admission yesterday (08/15) requiring 6.5mg IV dilaudid, which is equivalent to 160mg oral morphine or 40 mg oral dilaudid or 106mg oral oxycodone. Palliative care recommends: 1. Start fentanyl patch 25mcg/hr, change q 72 hours. for long acting pain relief. (May need to increase with an additional 12mcg/hr patch for 37mcg/hr. Our team will monitor this and see.) 2. Start oxycodone 15mg po q 3 hours prn break through pain for short-acting pain. 3. Continue IV dilaudid 0.5-1mg q 3 hours for SEVERE breakthrough pain from movement, until fentanyl patch is reaching sufficient blood levels to be effective (can take 12-15 hours). Likely we can discontinue the IV dilaudid tomorrow (08/17) 4. Give one dose IV 8mg dexamethasone for inflammation of bone mets and adjunctive to pain. 5. Start daily 4mg po dexamethasone on 08/17 in a.m. to maintain anti- inflammatory effect. Continue this on discharge. 6. Discontinue: prednisone, other dilaudid orders not listed above. Dr. Ramires discussed this plan with Dr. Forman and the Pharmacist as well as the pt 's nurse and the patient. Palliative Care will round in afternoon to review effectiveness of pain relief and educate patient further on plan. On return in early afternoon: Pt reports he is had a good period of time with sufficient pain relief in the mid morning but is starting to have 6/10 pain now (13:15pm). Dr. Ramires changed the oxycodone from q 4 hours to q 3 hours, and asked RN to give a breakthrough IV dilaudid dose of 1mg. Dr. Ramires spoke with pt, his friend Agnieszka, his two daughters Brianna and Salima, about what the pain plan is and how each pain medication is used. She counseled them on symptoms that might suggest spinal cord compression, and asked them to alert the nursing team, if Mr. Ross develops anything like these. She explained the radiation plan as Dr. Aj had explained to her on phone today. She answered questions about pain medications and side effects. DPOA/Advanced Directives/POLST: 1. Code Status: DNR/DNI Family/emotional support: Brianna Vance (daughter on [place], [place]) [phone] Salima Narayan (daughter in [place]) [phone] Spiritual support Patient Goals: TBD Additional Medical Diagnoses with primary management by Hospitalist team include : 81 year old male with prostate cancer presents to the ED via EMS with bilateral lower back pain and abdominal pain for 1.5 week. 1. Hypokalemia, acute, present on admission, active. - K of 2.5 on admission. Patient received 20 mEq of potassium IV in the ED. - EKG normal. - Continue to monitor K and replete if low. 2. Abnormal CT scan, active. - CT abd and pelvis revealed metastatic dz. Formal read by radiology pending. - Consult radiation oncology in the morning. 3. Bilateral lower back pain, acute, present on admission, active. - Likely secondary to bone metastases - CT showed metastasis bone lesions scan. Radiology read pending. - Radiation oncology consult in the AM - T10 lesion. -obtain records from [facility] - No sign of infection. UA negative. - Concerning for bone metastasis as a source of alkaline phosphatase elevated. - Pain is refractory to oral Acetaminophen and [place]. Will have Dilaudid 0.5mg IV available as needed for severe pain. 4. Right lower quadrant abdominal pain, acute, present on admission, active. - Normal abdominal XR with no sign of obstruction. Active bowel sound on exam. - Likely secondary to referral pain from bone metastases. - Miralax and Senna PRN - Pain management 5. Hypertension, chronic, stable. - Elevated BP likely secondary to pain. - Resume home meds: HCTZ 25mg daily and Valsartan. - Continue to monitor vital signs. 6. Prostate cancer, chronic, active. - Follow up with oncology as outpatient. - Resume home Abiraterone and Prednisone - Resume Tamsulosin 7. Urinary incontinence, chronic, presume stable. - Continue Oxybutynin 8. Medication reconciliation: to be done by the day team. Problems: Resuscitation Status Resuscitation Status: CPR: Attempt Resuscitation . Pain: Severe Pt History History of Present Illness Mr. Jr Ross is an 81 year old male with prostate cancer, diagnosed and treated 18 years ago, presents to the ED via EMS with progressively worsening bilateral lower back pain and abdominal pain onset 1 1/2 weeks ago. He reports constant, sharp back pain that localizes in the lumbar area bilaterally due does not radiate else where. He also complains of dull bilateral lower abdominal pain, worse on the RLQ. He reports constipation, nausea, vomiting, abdominal pain, lower back pain, and loss of appetite. He passes gas intermittently, but no stool for a week. He attributes this to poor oral intake. He states that he can drink water just fine, but had 2 episodes of vomiting after drinking water in the last week. The patient denies hematuria, dysuria, hematochezia, chest pain, recent injury/trauma, or other symptoms. He denies any chronic pain or similar symptoms in the past.The patient has taken stool softeners with no relief. EMS found the patient with a BP of 153/64 and otherwise normal vital signs. In the ED, patient was found to have low-grade temperature of 37.7 and elevated BP 166/61. Otherwise normal vital signs. CBC normal. CMP significant for Na 128 and K 2.5. Also elevated alkaline phosphatase at 380. Patient is taking Abiraterone for the prostate cancer. The patient is visiting family in [place] from [place], [place]. His treatment for his prostate cancer has been of [facility] in [place], [place]. Past Medical History Significant PMH Noted: prostate cancer, HTN and hyperlipidemia Surgical History penile implant, [place], [place] 2013 Family History Patient does not recall family history when asked Social History The patient is , his approximately three years ago. He lives alone in [place], [place]. His family includes two daughters who live on [place] and three sons who live in [place]. He is a never smoker. No history of heavy alcohol use or illicit drug use. 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 Medications Current Medications: Current Medications Famotidine 20 mg BID PO Last administered on 08/16/16t 09:56; Admin Dose 20 MG; Start 08/15/16 at 08:30 Al Hydrox/Mg Hydrox/Simethicone 30 ml Q6H PRN PO; Start 08/15/16 at 00:40 Ondansetron HCl 4 to 8 mg Q4H PRN IVPUSH; Start 08/15/16 at 00:40 Senna 17.2 mg BID PRN PO; Start 08/15/16 at 00:40; Stop 08/15/16 at 17:39; Status DC Polyethylene Glycol 17 gm DAILY PRN PO; Start 08/15/16 at 00:40 Acetaminophen 650 mg Q4H PRN PO; Start 08/15/16 at 00:40; Stop 08/15/16 at 01: 57; Status DC Hydromorphone HCl 0.5 mg Q4 PRN IVPUSH Last administered on 08/15/16 02:10; Admin Dose 0.5 MG; Start 08/15/16 at 01:55; Stop 08/15/16 at 04:30; Status DC Acetaminophen 975 mg 975 mg Q6H PRN PO; Start 08/15/16 at 01:55 Sodium Chloride 1,000 ml @ 100 mls/hr Q10H IV Last administered on 08/16/16 09 :59; Admin Dose 100 MLS/HR; Start 08/15/16 at 02:30 Hydromorphone HCl 0.5-1 Q3H PRN IVPUSH Last administered on 08/15/16 08:42; Admin Dose 0.5 MG; Start 08/15/16 at 05:30; Stop 08/15/16 at 09:08; Status DC Oxycodone HCl 5 mg Q4H PRN PO; Start 08/15/16 at 04:30; Stop 08/16/16 at 08:43 ; Status DC Polyethylene Glycol 17 gm DAILY PO Last administered on 08/15/16 08:39; Admin Dose 17 GM; Start 08/15/16 at 08:30; Stop 08/15/16 at 17:39; Status DC Senna 1 tablet DAILY PO Last administered on 08/15/16 08:39; Admin Dose 1 TABLET; Start 08/15/16 at 08:30; Stop 08/15/16 at 17:39; Status DC Potassium Chloride 10 meq BID PO Last administered on 08/16/16 09:56; Admin Dose 10 MEQ; Start 08/15/16 at 08:30 Hydromorphone HCl 0.5-1 MG Q2 PRN IVPUSH Last administered on 08/16/16 09:04; Admin Dose 0.5 MG; Start 08/15/16 at 10:30 Aspirin 81 mg DAILY PO Last administered on 08/16/16 09:56; Admin Dose 81 MG; Start 08/16/16 at 08:30 Hydrochlorothiazide 25 mg DAILY PO Last administered on 08/16/16 09:58; Admin Dose 25 MG; Start 08/16/16 at 08:30 Latanoprost 0.067 drop HS BOTH_EYES Last administered on 08/15/16 21:15; Admin Dose 0.067 DROP; Start 08/15/16 at 21:00; Stop 08/16/16 at 07:55; Status DC Oxybutynin Chloride 5 mg TID PO Last administered on 08/16/16 09:56; Admin Dose 5 MG; Start 08/15/16 at 20:30 Potassium Chloride 40 meq DAILY PO; Start 08/16/16 at 08:30; Stop 08/16/16 at 08 :30; Status DC Prednisone 5 mg BID PO Last administered on 08/15/16 21:15; Admin Dose 5 MG; Start 08/15/16 at 20:30; Stop 08/16/16 at 08:45; Status DC Tamsulosin HCl 0.8 mg HS PO Last administered on 08/15/16 21:15; Admin Dose 0.8 MG; Start 08/15/16 at 21:00 Fluticasone Propionate 2 spray DAILY NASAL Last administered on 08/16/16 09:58 ; Admin Dose 2 SPRAY; Start 08/16/16 at 08:30 Non-Formulary Medication 2,000 mg BID PO; Start 08/15/16 at 20:30; Status UNV Atorvastatin Calcium 20 mg HS PO Last administered on 08/15/16 21:15; Admin Dose 20 MG; Start 08/15/16 at 21:00 Latanoprost 1 drop HS BOTH_EYES; Start 08/16/16 at 21:00 Fentanyl 1 patch Q3D TOPICAL Last administered on 08/16/16 09:05; Admin Dose 1 PATCH; Start 08/16/16 at 08:25 Oxycodone HCl 15 mg Q4 PRN PO Last administered on 08/16/16 09:57; Admin Dose 5 MG; Start 08/16/16 at 08:35 Dexamethasone 4 mg DAILY PO; Start 08/17/16 at 08:30 Patient Own Medication 1 ea DAILY PO; Start 08/17/16 at 08:30 Scheduled Abiraterone Acetate (Zytiga) 250 Mg Tablet 1,000 MG PO DAILY Aspirin (Aspirin) 81 Mg Tablet 81 MG PO DAILY Fluticasone Propionate (Fluticasone Propionate) 50 Mcg/Actuation [place].susp 15.8 ML NS DAILY Hydrochlorothiazide (Hydrochlorothiazide) 25 Mg Tablet 25 MG PO DAILY Latanoprost (Latanoprost) 2.5 Ml Drops 1 GTT BOTH_EYES HS Loami-3 Fatty Acids (Fish Oil) 500 Mg Capsule.dr 2,000 MG PO BID Oxybutynin Chloride (Oxybutynin Chloride) 5 Mg Tablet 5 MG PO TID Potassium Chloride (Potassium Chloride) 20 Meq Tab.er.prt 40 MEQ PO DAILY TAKE WITH FOOD Prednisone (PredniSONE) 5 Mg Tab 5 MG PO BID Simvastatin (Simvastatin) 40 Mg Tablet 40 MG PO HS Tamsulosin (Flomax) 0.4 Mg Capsule 0.8 MG PO HS Valsartan (Valsartan) 80 Mg Tablet 80 MG PO DAILY Scheduled PRN Carboxymethylcellulose Sodium (Lubricant Eye Drops) 15 Ml Drops 15 ML BOTH_EYES QID PRN PRN For Eye Irritation Saliva Stimulant Agents Comb.3 (Biotene Moisturizing Mouth) 44.3 Ml [place] 44.3 ML MM QID PRN PRN dry mouth Objective Findings Exam Vital Sign - Last Date Time Temp Pulse Resp B/P Pulse Ox O2 Delivery O2 Flow Rate FiO2 08/16/16 10:23 59 08/16/16 06:13 36.8 16 147/64 96 Nasal Cannula 2.00 Intake and Output 08/15/16 08/15/16 08/16/16 Cumulative From/Thru 15:00 23:00 07:00 08/14/16 19:29 - 08/16/16 06:13 Intake Total 0 ml 2266 ml 1147 ml 4652 ml Output Total 400 ml 1100 ml 1500 ml Balance -400 ml 1166 ml 1147 ml 3152 ml Intake Oral 0 ml 1200 ml 150 ml 1350 ml IV Total 1066 ml 997 ml 3302 ml Output Urine Total 400 ml 1100 ml 1500 ml # Voids 1 1 # Bowel Movements 0 0 0 Lab/Diagnostics CT scan of the abdomen and pelvis with contrast 08/14 : identified severe metastatic bone disease with a lytic T10 metastasis demonstrating extraosseous, paraspinous and epidural tumor spread causing severe canal stenosis. His prostate was enlarged and an indeterminate calcified focus was protruding posteriorly from the inferior pole of the left kidney. The patient was recommended to undergo a thoracic and lumbar MRI due to these findings, however, was found to have a penile implant of uncertain metallic composition; and therefore, his inpatient team awaited records of his penile implant before an MRI can be ordered. CT scan of the chest with contrast: identified ill-defined nodular densities in the right upper lobe spanning 3.1 cm. A nodule was also present in the left upper lobe measuring 4 mm. Additional diffuse and severe metastatic bone disease was noted, including the T10 vertebral body lesion which was completely visualized on the latter scan and found to measure 6 cm. Time spent Total time 100 minutes; >50% face to face with patient and/or family, providing counselling regarding plans and recommendations, and in care coordination with his/her medical teams. Tory Ramires MD Aug 16, 2016 10:46 Tory Ramires MD Aug 16, 2016 10:46
--- NOTE | 2016-08-16 11:33 | NUR ---
Palliative Care Palliative Care received order from Dr Forman 08/16/16 to assist with pain management. Patient is an 81 year old man with hx of prostate cancer. He was admitted 08/15/16 due to lower back pain and abdominal pain. Patient lives at home alone in [place]. He is here visiting his daughter. Brianna Vance (daughter) [phone] Salima Narayan (daughter in [place]) [phone] Palliative Care to follow. Monalisa Jorgensen
[2016-08-16 13:24] VITALS: BP 141/63; PULSE 56; RESP 18; O2SAT 96
--- NOTE | 2016-08-16 15:24 | NUR ---
NUTRITION ASSESSMENT: ASSESS: 81YO M admit with abdominal/back pain and h/o prostate CA with abdominal CT showing severe metastatic disease, palliative care following for pain management. Pt from [place]. Goals of care to be determined per palliative note. Noted poor oral intake prior to admit 2/2 abdominal pain. Rad-onc consulted. PMHX: Prostate CA, HTN DIET: General. PO: refusal all meals LABS: Alb 3.4, K+3.3 MEDS: Reviewed GI: No BM SKIN: Chet 19 WEIGHT: 62.4kg, BMI 21.0 EST.NEEDS: CANCER (30-35kcal/kg;1.0-1.5g/kgpro) Kcal:2716-5485 Pro: 60-95g NUTRITION DIAGNOSIS: (1) Increased energy/protein needs related to increased demand for nutrients as evidenced by Cancer dx. INTERVENTION: (1) Supplements added BID. MONITOR/EVALUATE: Diet adv/tolerance, po intake, labs, GI status, Goals of care. Follow-up per moderate risk.
--- NOTE | 2016-08-16 15:54 | NUR ---
Off floor Pt left to Radiation at 1525, IV SL, given pain medications prior to appointment time. Addendum: 08/16/16 at 1824 by PRUDENCE REECE RN Pt returned to floor at 1645, stated he was very tired and pain was increased, administered pain medication, pt able to fall asleep, when he awoke he stated the pain was tolerable.
--- NOTE | 2016-08-16 16:37 | NUR ---
spiritual care: routine pt reported "getting better" and joked with family at bedside, supportive. Pt agreeable for eucharistic visitor.
[2016-08-16 16:49] VITALS: BP 170/66; PULSE 59; RESP 18; O2SAT 96
[2016-08-16 20:09] VITALS: BP 168/71; PULSE 59; RESP 18; O2SAT 95
[2016-08-16] MEDS: Heparin 5,000 Unit/mL Inj SUBQ SCH (20:30)
[2016-08-17 00:54] VITALS: BP 144/65; PULSE 52; RESP 16; O2SAT 95
[2016-08-17] MEDS: Heparin 5,000 Unit/mL Inj SUBQ SCH ×3 (02:34→15:31)
[2016-08-17] MEDS: HYDROmorphone 0.5 mg/0.5 mL iSecure Syringe IVPUSH PRN (03:47)
--- NOTE | 2016-08-17 04:19 | NUR ---
Pain/activity Pt reporting better pain control tonight ranging from 3-11/05. Fentanyl patch in place to right chest. Pt is taking 10 mg of Oxycodone just about every 3-4 hrs. Pt was given 0.5mg IV Dilaudid for breakthrough pain x1. During the night, Pt has been increasingly forgetful at times and needs reminders about where he is and not to get up without assistance. [place] alarm in place. Addendum: 08/17/16 at 0732 by MARIE FISHMAN RN Pain Pt reporting increased back pain this morning at 12/05, given full dose of Oxycodone 15mg and on reassessment pt resting, eyes closed and appears comfortable.
--- NOTE | 2016-08-17 05:27 | PCM.PNMED ---
Subjective Date of Service Aug 17, 2016 Subjective Patient is seen and examined. He appears a lot more comfortable today. He states that he is able to move a little bit more but he does not like his IV pole. He has not had any luck with bowel movements even after trying Dulcolax suppository yesterday. He was very unclear about whether he had radiation treatment today or not. His nurse verified that he indeed did did receive radiation today. Patient said he went somewhere but he does not know what they did. Plan to do radiation tomorrow. This pain is well controlled on that regimen palliative care has him on. No other concerns today Exam Vital Signs Vital Sign - Last Date Time Temp Pulse Resp B/P Pulse Ox O2 Delivery O2 Flow Rate FiO2 08/17/16 00:54 37.1 52 16 144/65 95 Room Air 08/16/16 06:13 2.00 Intake and Output 08/16/16 08/16/16 08/17/16 Cumulative From/Thru 15:00 23:00 07:00 08/14/16 19:29 - 08/17/16 02:38 Intake Total 1809 ml 6461 ml Output Total 150 ml 1650 ml Balance 1659 ml 4811 ml Intake Oral 700 ml 2050 ml IV Total 1109 ml 4411 ml Output Urine Total 150 ml 1650 ml # Voids 1 2 # Bowel Movements 0 Exam Gen.: No acute distress laying in bed watching TV HEENT normocephalic, atraumatic Heart: Regular rate and rhythm no S3 or S4 sounds Lungs: Clear to auscultation bilaterally no crackles or wheezes Abdomen: Appears mildly distended but he has no pain on palpation. Bowel sounds are present Skin: His thoracic spine appears without any erythema at the radiation site Neuro: No focal deficits Musculoskeletal: Much better range of motion in his thoracic spine today Psych negative for anxiety Lab and Diagnostics Result Diagram: 08/16/16 0520 08/16/16 0520 X-Rays, CTs and MRIs PROCEDURE: X-RAY ACUTE ABDOMINAL SERIES IMPRESSION: Normal bowel gas pattern. Moderate amount of stool in colon. Dictated by: Gabbie Sommer M.D. on 08/14/2016 at 21:58 Approved by: Gabbie Sommer M.D. on 08/14/2016 at 22:01 Assessment & Plan 81 year old male with prostate cancer presents to the ED via EMS with bilateral lower back pain and abdominal pain for 1.5 week. 1. Hypokalemia, acute, present on admission, active. - K of 2.5 on admission. Patient received 20 mEq of potassium IV in the ED. - EKG normal. - Continue to monitor K and replete if low. 3.3 to 2. 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 Spoke with radiation oncologist on-call today and he feels he can start by radiating that he can area that is causing the spinal cord compression And repeat scans as needed a follow-up therapy is needed. For now the plan is for the patient to completing of radiation to get some level of pain relief and then possibly plan trip back to [place] - Palliative care managing his pain medications, he appears to be comfortable on fentanyl patch. They also started him on dexamethasone and discontinue prednisone. - Plan to continue radiation therapy. 3. Bilateral lower back pain, acute, present on admission, active. - Concerning for bone metastasis as a source of alkaline phosphatase elevated. . - Pain control for palliative care 4. Right lower quadrant abdominal pain, acute, present on admission, active: Moderate amount of stool noted on his CT scan - Normal abdominal XR with no sign of obstruction. Active bowel sound on exam. - Likely secondary to referral pain from bone metastases. - Miralax and Senna PRN. Added Dulcolax when necessary suppository. -He was given 1 dose of mag citrate today 5. Hypertension, chronic, stable. - Elevated BP likely secondary to pain. -Continue home meds: HCTZ 25mg daily and Valsartan. - Continue to monitor vital signs. 6. Prostate cancer, chronic, active. - Follow up with oncology as outpatient. - Continue Tamsulosin -We will ask if patient can bring his home ABIRATEROANe. 7. Urinary incontinence, chronic, presume stable. - Continue Oxybutynin Disposition: We will discharge patient back to his daughter's house in [facility] following his radiation therapy Pain Evaluation: Adequate Pain Control GI Prophylaxis: H2 amilcar VTE Prophylaxis: Sub-Q Heparin (Unfractionated), SCDs VTE Mechanical Devices: Intermittant Pneumatic CD Resuscitation Status: DNR/DNI:Do Not Resuscitate/Intubate Racquel Forman DO Aug 17, 2016 05:27
[2016-08-17 05:41] VITALS: BP 175/75; PULSE 56; RESP 18; O2SAT 93
[2016-08-17 06:25] LABS: BASOPHILS % (AUTO) 0.2 % (0-3); EOSINOPHILS % (AUTO) 0.8 % (0-5); MONOCYTES % (AUTO) 10.1 % (4-12); Mean Corpuscular Hemoglobin 29.6 pg (27.0-35.0); Mean Corpuscular Volume 83.7 fL (81-100); NEUTROPHILS % (AUTO) 73.3 % (40-74); Platelet Count 177 bil/L (150-400)
[2016-08-17] MEDS ORDERED: Potassium Chloride 20 mEq SR Tablet PO ONE (07:45)
[2016-08-17] MEDS: Fluticasone 0.05% 15 Spray/2 Gm 16 Gm Nasal Spray NASAL SCH (08:54)
[2016-08-17] MEDS: ABIRATERONE PO SCH (08:57)
[2016-08-17] MEDS: Omega-3 Fatty Acids 1,000 mg Capsule PO SCH ×2 (09:14→21:47)
[2016-08-17 10:14] VITALS: BP 155/71; PULSE 49; RESP 18; O2SAT 95
--- NOTE | 2016-08-17 11:18 | NUR ---
Pain/mentation Patient is alert and oriented X2. able to make needs known. C/o pain back and abdomen. Scheduled patch placed as ordered to abdomen. Palliative doctor aware and at bed side speaking to daughter and patient. PO scheduled medications given as ordered. no BM per patient last couple days. PRN miralax given as ordered. call light with in reach for safety. [place] alarm on. Will continue to monitor for safety, pain and vital signs.
--- NOTE | 2016-08-17 12:16 | PCM.PALLBR ---
Palliative Care Recommendation The patient is a very pleasant 81-year-old gentleman with a history of prostate cancer diagnosed and treated 18 years ago. This was reportedly in remission until 1-1/2 years ago when he was found to have metastatic disease. 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 The most severe lesion is at T10 vertebral body which shows a large mass up to 6 cm with epidural and paraspinal extension which may be largely responsible for his pain in the bilateral lower back region. Dr. Gutierrez (radiation oncology) saw him 08/15 and her team was waiting for medical records from [place] to find out whether he has had prior radiation therapy. Subsequently, [place] heme/onco records arrived today. Mr. Ross started seeing Dr. Susan Arreaga 10/02/2014 for his prostate cancer recurrence at [facility], and was treated only with ADT (androgen deprivation therapy) in the form of leuprolide injections which worked for some months. Then the cancer stopped responding to it, and he was started on Zytiga (abiraterone acetate). He has not had prior radiation therapy per these [facility] records. Plan is that he will go for simulation today and start his radiation on 08/17. He will need 10 sessions of radiation therapy, per discussion with Dr. Aj today. Summary of palliative recommendations: Symptom management: 08/17: Pt's pain much improved on 25mcg/hr fentanyl patch, but used 55mg oxycodone IR in last 24h (08/16) which would be equal to an additional 25mcg/hr patch. However, in my clinical judgment, we should only add 12mcg/hr patch to current 25mcg/hr patch for a total 37mcg/hr today. Discussed this at bedside with daughter Salima and she understands. Pt nods his head as if understanding , but does not appear to be paying attention. Palliative care recommends: 1. Increase fentanyl as above to total dose of 37mcg/hr patch(25+12) change q 72 hours. for long acting pain relief. 2. Decrease oxycodone 15mg po q 3 hours prn breakthrough pain for short- acting pain to 5-10mg po q3 hr. 3. Discontinue: IV dilaudid 0.5-1mg q 3 hours as patches should help keep patient from having episodes of severe breakthrough pain. 4. Continue daily 4mg po dexamethasone for inflammation of bone mets and adjunctive to pain. Continue this on discharge. 5. Constipation: miralax started, Dr. Ramires will try SQ relistor in a.m. if no result by end of 08/17. Dr. Ramires spoke with pt and his daughter Salima about what the pain plan for the day. She counseled them again, just as she did on 08/16, re: symptoms that might suggest spinal cord compression, and asked them to alert the nursing team, if Mr. Ross develops such symptoms. Palliative Care will round in afternoon to review effectiveness of pain relief. On return during afternoon rounding, pt is more comfortable, says he has been taking pain medications whenever offered, but doesn't ask for them. On review of JUL, he has had no oxycodone at all this morning or afternoon, and no IV dilaudid since 03:47am. His entire pain relief is coming from his 37mcg/hr fentanyl patch dose. He has not yet gone to radiation (that will be at 1600h). Goals of Care: Dr. Ramires had planned with Salima to speak to both daughters about prognosis, and goals privately before sitting down with patient today-- however Brianna had to leave [facility] to drop off Angel's friend Agnieszka who is going home to [place] today. The plan now is to meet with both daughters on 08/18 (time not yet set). After discussion with them, we will involve Mr. Ross at bedside. DPOA/Advanced Directives/POLST: 1. Code Status: DNR/DNI Family/emotional support: Brianna Vance (daughter on [place], [place]) [phone] Salmia Narayan (daughter in [place]) [phone] Additional Medical Diagnoses with primary management by Hospitalist team include : 1. Hypokalemia, acute, present on admission, active. - Continue to monitor K and replete if low. 2. 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 This admission is first time spinal cord compression was noted and a CT scan ( during this admission) - Radiation oncologist consulted: Today is day 1 radiation at 1600. Radiation oncologist feels he can start by radiating area that is causing the spinal cord compression And repeat scans as needed a follow-up therapy is needed. For now the plan is for the patient to completing of radiation to get some level of pain relief and then possibly plan trip back to [place] - Palliative care managing his pain medications, he appears to be comfortable on fentanyl patch. They also started him on dexamethasone and discontinued prednisone. 3. Bilateral lower back pain, acute, present on admission, active. - Concerning for bone metastasis as a source of alkaline phosphatase elevated. 4. Right lower quadrant abdominal pain, acute, present on admission, active: Moderate amount of stool noted on his CT scan - Normal abdominal XR with no sign of obstruction. Active bowel sound on exam. - Likely secondary to referral pain from bone metastases. - Miralax and Senna PRN. Added Dulcolax when necessary suppository. 5. Hypertension, chronic, stable. - Elevated BP likely secondary to pain. - Resume home meds: HCTZ 25mg daily and Valsartan. 6. Prostate cancer, chronic, active. - Follow up with oncology as outpatient. - Continue home Abiraterone -Continue Tamsulosin 7. Urinary incontinence, chronic, presume stable. - Continue Oxybutynin Problems: Resuscitation Status Resuscitation Status: DNR/DNI:Do Not Resuscitate/Intubate . Pain: Moderate Total time 65 minutes; >50% face to face with patient and/or family, providing counselling regarding plans and recommendations, and in care coordination with his/her medical teams. Palliative Brief Note Date of Service Aug 17, [address] Ramires made morning rounds to follow-up on pain management. Pt and daughter Salima report much better pain control, but at times, he can still have 6/10 pain (after getting up to go to bathroom) and a lot of fatigue with exertion. No dyspnea. Most of pain is in lower back. It can be sharp or dull, but with aching quality when dull. Salima reports that after radiation simulation yesterday when pt returned he was in a lot of pain and nurses gave him one dose of every pain medication he could have and then in an hour or so he got very confused and talking about " the hippies making noise in the hallway." He was agitated and impulsive. Dr. Ramires counseled that tonight should be a better situation because he has a baseline pain control from fentanyl patch, and will not likely need as much oxycodone over night with the additional patch added this morning. On exam, the patient is tired, eyes closed, but able to answer most questions clearly, seems to "tune out" and let his daughter give details to provider. He is thin, head and neck unremarkable, lungs clear, heart S1,S2,rrr. Abdomen flat, soft, nontender. Extremities no edema. Equal strength 5/5 with flexion and extension of feet/legs. Tory Ramires MD Aug 17, 2016 12:16 Tory Ramires MD Aug 17, 2016 12:16
[2016-08-17 14:43] VITALS: BP 153/63; PULSE 59; RESP 18; O2SAT 97
--- NOTE | 2016-08-17 15:04 | NUR ---
Social Work-continued d/c planning: Data:EMR Reviewed. Pt is on day 2 of hospitalization for hyponatremia per H&P. Pt is not medically stable for discharge at this time, anticipate several more days. Palliative care involved and will continue to work with pt. MD plans to order PT to see pt to assist with mobility. Pt normally resides in [place], but has been staying up here with daughters. SW to follow up post PT if any needs arise. SW will continue to follow. Assessment:Pt who is independent at baseline. Plan:Pt to discharge home with daughters when medically stable via POV. MD to order PT when appropriate. SW will continue to follow. LATOYA Lorenzana
--- NOTE | 2016-08-17 16:55 | NUR ---
Radiation treatment patient at [facility] for radiation therapy
--- NOTE | 2016-08-17 17:08 | NUR ---
Radiation Patient back from [facility]
[2016-08-17 17:17] VITALS: BP 156/60; PULSE 53; RESP 19; O2SAT 96
[2016-08-17 19:36] VITALS: BP 162/55; PULSE 55; RESP 19; O2SAT 96
[2016-08-18] MEDS: Heparin 5,000 Unit/mL Inj SUBQ SCH ×3 (01:18→18:32)
--- NOTE | 2016-08-18 05:14 | PCM.PNMED ---
Subjective Date of Service Aug 18, 2016 Subjective Patient is seen and examined. He has family members visiting with him and he appears to be spending the time with the grandchildren. He states that he is able to move around a lot easier today daughter states he had a good day work well with PT OT. He appears a little fatigued because he just completed 7 day 2 of radiation treatment. After having tried the injection given to him by the palliative care he still did not have any bowel movements. Is requesting an enema. No other complaints today Exam Vital Signs Vital Sign - Last Date Time Temp Pulse Resp B/P Pulse Ox O2 Delivery O2 Flow Rate FiO2 08/17/16 19:36 36.7 55 19 162/55 96 Room Air 08/16/16 06:13 2.00 Intake and Output 08/17/16 08/17/16 08/18/16 Cumulative From/Thru 15:00 23:00 07:00 08/14/16 19:29 - 08/17/16 18:53 Intake Total 1162 ml 8462 ml Output Total 1000 ml 4100 ml Balance 162 ml 4362 ml Intake Oral 760 ml 3010 ml IV Total 402 ml 5452 ml Output Urine Total 1000 ml 4100 ml # Voids 2 # Bowel Movements 0 Exam Gen.: No acute distress, laying in bed. HEENT: Hard of hearing, normocephalic atraumatic Neck: Negative for JVD, trachea central Heart: Regular rate and rhythm, S3-S4 sounds Lungs: Clear to auscultation crackles or wheezes Psych: Negative for anxiety explain: Neuro: No focal deficits IVs and Medications Medications Reviewed: Medications were reviewed in detail Lab and Diagnostics Intake and Output 08/17/16 08/17/16 08/18/16 Cumulative From/Thru 15:00 23:00 07:00 08/14/16 19:29 - 08/18/16 05:57 Intake Total 1162 ml 500 ml 8962 ml Output Total 1000 ml 1375 ml 5475 ml Balance 162 ml -875 ml 3487 ml Intake Oral 760 ml 500 ml 3510 ml IV Total 402 ml 5452 ml Output Urine Total 1000 ml 1375 ml 5475 ml # Voids 1 3 # Bowel Movements 0 0 Result Diagram: 08/17/16 0550 08/17/16 0550 X-Rays, CTs and MRIs PROCEDURE: X-RAY ACUTE ABDOMINAL SERIES IMPRESSION: Normal bowel gas pattern. Moderate amount of stool in colon. Dictated by: Gabbie Sommer M.D. on 08/14/2016 at 21:58 Approved by: Gabbie Sommer M.D. on 08/14/2016 at 22:01 Assessment & Plan 81 year old male with prostate cancer presents to the ED via EMS with bilateral lower back pain and abdominal pain for 1.5 week. 1. Hypokalemia, acute, present on admission, active. - K of 2.5 on admission. Patient received 20 mEq of potassium IV in the ED. - EKG normal. - Continue to monitor K and replete if low. With in Normal today 2. 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 Spoke with radiation oncologist on-call today and he feels he can start by radiating that he can area that is causing the spinal cord compression And repeat scans as needed a follow-up therapy is needed. For now the plan is for the patient to completing of radiation to get some level of pain relief and then possibly plan trip back to [place] - Palliative care managing his pain medications, he appears to be comfortable on fentanyl patch. They also started him on dexamethasone and discontinue prednisone. - Plan to continue radiation therapy. Today day#2 of radiation therapy today 3. Bilateral lower back pain, acute, present on admission, active. - Concerning for bone metastasis as a source of alkaline phosphatase elevated. . - Pain control per palliative care 4. Right lower quadrant abdominal pain, acute, present on admission, active: Moderate amount of stool noted on his CT scan - Normal abdominal XR with no sign of obstruction. Active bowel sound on exam. - Likely secondary to referral pain from bone metastases. 5. Constipation - Miralax and Senna PRN. Added Dulcolax when necessary suppository. -Since he was unable to have bowel movements of mag citrate as well as injection we will give him 1 time Fleet Enema 5. Hypertension, chronic, stable. - Elevated BP likely secondary to pain. -Continue home meds: HCTZ 25mg daily and Valsartan. - Continue to monitor vital signs. 6. Prostate cancer, chronic, active. - Follow up with oncology as outpatient. - Continue Tamsulosin 7. Urinary incontinence, chronic, presume stable. - Continue Oxybutynin Disposition: We will discharge patient back to his daughter's house in [facility] following his radiation therapy GI Prophylaxis: H2 amilcar VTE Prophylaxis: Sub-Q Heparin (Unfractionated), SCDs VTE Mechanical Devices: Intermittant Pneumatic CD Resuscitation Status: DNR/DNI:Do Not Resuscitate/Intubate Racquel Forman DO Aug 18, 2016 05:14
[2016-08-18 05:48] VITALS: BP 146/62; PULSE 60; RESP 16; O2SAT 95
--- NOTE | 2016-08-18 05:58 | NUR ---
NOC PT has slept most of the night since receiving 10mg of oxycodone for back pain he rates at an 8. PT is definitely confused and not because he is in a different state. At one point he was able to answer most mentation questions, but later in the bebe he could not understand who I was and told me he was going to call the police on me. Sitter at bedside. She reports that he is very unsteady when he gets up to the BR and is a huge fall risk. V/S WNL. PT is to evaluate today. Unsure if he is to go for radiation again today. PT did drink mag citrate last night(about 1/2). No BM yet. His abdomen is soft and non-tender.
[2016-08-18 06:10] LABS: BASOPHILS % (AUTO) 0.2 % (0-3); EOSINOPHILS % (AUTO) 1.5 % (0-5); MONOCYTES % (AUTO) 9.1 % (4-12); Mean Corpuscular Hemoglobin 29.9 pg (27.0-35.0); Mean Corpuscular Volume 84.7 fL (81-100); NEUTROPHILS % (AUTO) 71.4 % (40-74); Platelet Count 185 bil/L (150-400)
[2016-08-18] MEDS: ABIRATERONE PO SCH (08:07)
[2016-08-18] MEDS ORDERED: Methylnaltrexone 12 mg/0.6 mL Inj SUBQ ONE (08:30)
[2016-08-18] MEDS: Omega-3 Fatty Acids 1,000 mg Capsule PO SCH ×2 (08:43→20:26)
[2016-08-18] MEDS: Fluticasone 0.05% 15 Spray/2 Gm 16 Gm Nasal Spray NASAL SCH (08:43)
--- NOTE | 2016-08-18 09:14 | PCM.PALLBR ---
Palliative Care Recommendation The patient is a very pleasant 81-year-old gentleman with a history of prostate cancer diagnosed and treated 18 years ago. This was reportedly in remission until 1-1/2 years ago when he was found to have metastatic disease. 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 The most severe lesion is at T10 vertebral body which shows a large mass up to 6 cm with epidural and paraspinal extension which may be largely responsible for his pain in the bilateral lower back region. Dr. Gutierrez (radiation oncology) saw him 08/15 and her team was waiting for medical records from [place] to find out whether he has had prior radiation therapy. Subsequently, [place] heme/onco records arrived today. Mr. Ross started seeing Dr. Susan Arreaga 10/02/2014 for his prostate cancer recurrence at [facility], and was treated only with ADT (androgen deprivation therapy) in the form of leuprolide injections which worked for some months. Then the cancer stopped responding to it, and he was started on Zytiga (abiraterone acetate). He has not had prior radiation therapy per these [facility] records. Plan is that he will go for simulation today and start his radiation on 08/17. He will need 10 sessions of radiation therapy, per discussion with Dr. Aj today. Summary of palliative recommendations: Symptom management: 08/18: Pt reports more pain overnight and rates his a.m. pain as "almost 9/10 " in lower back, he can still move both lower extremities without pain and has good strength. In reviewing the MAR, he is on 37mcg/hr fentanyl and had NO prn pain meds overnight. He just received 10mg oxycodone IR this morning prior to Dr. Ramires's arrival. Per patient's request, Dr. Ramires called daughter Brianna Vance as nursing and I were unable to get through to Salima Narayan on the phone number she had. Brianna will call Salima who will come in to see her Dad soon. 1. Continue fentanyl 37 mcg/hr, change q 72 hours for long-acting pain medication. Will consider increase to 50mcg/hr today, will discuss with family and pt after daughters arrive. After discussion with patient and family, decision made to increase patch to 50mcg/hr today 08/18. 2. Change oxycodone to 10-20mg po q 3 hours for breakthrough pain. This is his short-acting pain med. 10mg for 1-4/10 pain/15mg for 5-7/10 pain/20mg for 8- 10/10 pain. 3. Continue dexamethasone 4mg po q day for bone metastases pain and inflammation. 4. Constipation: pt will get one trial dose of relistor SQ today, this was effective within 1 hour. Start Senna-S 2 po BID scheduled for opiate induced constipation relief. 5. Stat 1mg dilaudid IV once this morning for reported 9/10 pain. At pt request, and family agrees. Palliative Care will round in afternoon to review effectiveness of pain relief. Goals of Care: Dr. Ramires discussed prognosis at bedside with patient, daughters Salima and Brianna. Everyone understands that Mr. Ross has a terminal illness and the radiation is just to resolve pain and relieve/prevent spinal cord compression. 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 Disposition: [facility] will call CM worker today to find out what insurance will cover for a short term nursing facility where Mr. Ross could go to finish his radiation therapy as an outpatient. DPOA/Advanced Directives/POLST: 1. Code Status: DNR/DNI 2. Has completed AD and POLST-equivalent documents in [place] and plans to return there on recovery. Family/emotional support: Brianna Vance (daughter on [place], [place]) [phone] Salima Narayan (daughter in [place]) [phone] Problems: Resuscitation Status Resuscitation Status: DNR/DNI:Do Not Resuscitate/Intubate Total time 65 minutes; >50% face to face with patient and/or family, providing counselling regarding plans and recommendations, and in care coordination with his/her medical teams. I also spent an additional 65 minutes counseling for advanced care planning with the patient/the patients family/the surrogate decision maker. Palliative Brief Note Date of Service Aug 18, [address]. Ramires made morning rounds to follow-up on pain management. Subjective: the patient is awake, Sitting upright in bed with breakfast tray across his lap. He makes good eye contact, reports significant low back pain. Vital Signs Label Value Date Time Patient Temperature 36.8 degrees C 08/18/1648 Temperature Source Oral 08/18/1648 Pulse 60 08/18/1648 Respiratory Rate 16 bpm 08/18/1648 Blood Pressure Assessment 146/62 (90) 08/18/1648 Location Right Arm Source Automatic Cuff Position Lying Bedside Pulse Oximetry 95 % 08/18/1648 Item Value Date Time Oxygen Delivery Method Room Air 08/18/16547 Exam: General: thin, head and neck unremarkable, Lungs: clear Heart: S1,S2, rrr, no murmur. Abdomen: flat, soft, nontender Extremeites: no edema Neuro: CN2-12 nonfocal. Strength in bilateral lower legs is equal with good flexion and extension of feet/legs.Sensory intact. Tory Ramires MD Aug 18, 2016 09:13 I also spent an additional [ ] minutes counseling for advanced care planning with the patient/the patients family/the surrogate decision maker. Palliative Brief Note Date of Service Aug 18, [address]. Ramires made morning rounds to follow-up on pain management. Subjective: the patient is awake, Sitting upright in bed with breakfast tray across his lap. He makes good eye contact, reports significant low back pain. Vital Signs Label Value Date Time Patient Temperature 36.8 degrees C 08/18/16547 Temperature Source Oral 08/18/1648 Pulse 60 08/18/1648 Respiratory Rate 16 bpm 08/18/1648 Blood Pressure Assessment 146/62 (90) 08/18/16547 Location Right Arm Source Automatic Cuff Position Lying Bedside Pulse Oximetry 95 % 08/18/1648 Item Value Date Time Oxygen Delivery Method Room Air 08/18/1648 Exam: General: thin, head and neck unremarkable, Lungs: clear Heart: S1,S2, rrr, no murmur. Abdomen: flat, soft, nontender Extremeites: no edema Neuro: CN2-12 nonfocal. Strength in bilateral lower legs is equal with good flexion and extension of feet/legs.Sensory intact. Tory Ramires MD Aug 18, 2016 09:13
[2016-08-18 10:07] VITALS: BP 154/68; PULSE 59; RESP 16; O2SAT 95
[2016-08-18] MEDS ORDERED: HYDROmorphone 1 mg/mL Inj IVPUSH ONE (11:50)
--- NOTE | 2016-08-18 13:12 | NUR ---
Evaluation completed. Please go to "Notes" then click on "Assessments and Notes" (bottom left corner of screen). Then select appropriate discipline tab on top of screen.
[2016-08-18] MEDS ORDERED: Sodium Biphos-Phos 133 mL Enema RECTAL ONE (17:35)
--- NOTE | 2016-08-18 19:20 | NUR ---
Pain Fentanyl patch dose increased to 50mcg and place on R tricep. Roxicodone dose increased to 10-20mg q 3hours; gave him 20mg prior to radiation and pt and family report he was more comfortable through process. Pt only required 10mg at next pain assessment. One time dilaudid dose given per Dr. Holloway which resulted in increased confusion and hallucinations.
[2016-08-18] MEDS: Senna-Docusate 8.6-50 mg Tablet PO SCH (20:22)
[2016-08-18 20:26] VITALS: BP 188/88; PULSE 73; RESP 18; O2SAT 94
[2016-08-19] MEDS: Heparin 5,000 Unit/mL Inj SUBQ SCH ×3 (01:06→17:06)
--- NOTE | 2016-08-19 04:47 | NUR ---
Pain/ Mentation Pt. has denied need for roxycodone throughout night. Pt. has been sleeping on and off throughout night, with sitter present. Pt. is still confused, and is easily able to get distracted and forgetful during conversation. Will continue to monitor.
[2016-08-19 05:24] VITALS: BP 165/71; PULSE 59; RESP 16; O2SAT 94
[2016-08-19 06:42] LABS: BASOPHILS % (AUTO) 0.2 % (0-3); MONOCYTES % (AUTO) 10.2 % (4-12); Mean Corpuscular Hemoglobin 29.8 pg (27.0-35.0); Mean Corpuscular Volume 85.8 fL (81-100); Platelet Count 180 bil/L (150-400)
[2016-08-19] MEDS: ABIRATERONE PO SCH (09:24)
[2016-08-19] MEDS: Omega-3 Fatty Acids 1,000 mg Capsule PO SCH ×2 (09:25→20:30)
[2016-08-19] MEDS: Senna-Docusate 8.6-50 mg Tablet PO SCH ×2 (09:25→20:30)
[2016-08-19] MEDS: Fluticasone 0.05% 15 Spray/2 Gm 16 Gm Nasal Spray NASAL SCH (09:25)
--- NOTE | 2016-08-19 11:26 | PCM.PALLBR ---
Palliative Care Recommendation The patient is a very pleasant 81-year-old gentleman with a history of prostate cancer diagnosed and treated 18 years ago. This was reportedly in remission until 1-1/2 years ago when he was found to have metastatic disease. 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 The most severe lesion is at T10 vertebral body which shows a large mass up to 6 cm with epidural and paraspinal extension which may be largely responsible for his pain in the bilateral lower back region. Dr. Gutierrez (radiation oncology) saw him 08/15 and her team was waiting for medical records from [place] to find out whether he has had prior radiation therapy. Subsequently, ID heme/onco records arrived 08/16. Mr. Ross started seeing Dr. Susan Arreaga 10/02/2014 for his prostate cancer recurrence at [facility], and was treated only with ADT (androgen deprivation therapy) in the form of leuprolide injections which worked for some months. Then the cancer stopped responding to it, and he was started on Zytiga (abiraterone acetate). He has not had prior radiation therapy per these [facility] records. Plan is that he will go for simulation today and start his radiation on 08/17. He will need 10 sessions of radiation therapy, per discussion with Dr. Aj today. Summary of palliative recommendations: Symptom management: 08/19: no pain issues overnight. MAR reviewed: No breakthrough pain meds needed last night. No use of PRN breakthrough pain meds overnight or this morning. 1. Continue fentanyl 50 mcg/hr, change q 72 hours for long-acting pain medication. Today is day 2. Should be discharged on this medication. 2. For breakthrough pain: oxycodone IR to 10-20mg po q 3 hours for breakthrough pain. 10mg for 1-4/10 pain/15mg for 5-7/10 pain/20mg for 8-10/10 pain. 3. Continue dexamethasone 4mg po q day for bone metastases pain and inflammation. 4. Constipation: failed relistor, miralax, Senna-S, suppositories. Will get warm water enema today. Needs to have BM prior to discharge. Palliative Care will round in afternoon to review effectiveness of pain relief and check on whether constipation has resolved with enema. Briefly discussed manual disimpaction with daughter, but she thinks patient would have difficulty tolerating that procedure. Goals of Care: Dr. Ramires discussed prognosis at bedside with patient, daughters Salima and Brianna. Everyone understands that Mr. Ross has a terminal illness and the radiation is just to resolve pain and relieve/prevent spinal cord compression. 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 Disposition: [facility] to check with CM worker today to find out what insurance will cover for a short term nursing facility where Mr. Ross could go to finish his radiation therapy as an outpatient. She may be able to take him home , but not certain of this. DPOA/Advanced Directives/POLST: 1. Code Status: DNR/DNI 2. Has completed AD and POLST-equivalent documents in [place] and plans to return there on recovery. Family/emotional support: Brianna Vance (daughter on [place], [place]) [phone] Salima Narayan (daughter in [place]) [phone] Problems: Resuscitation Status Resuscitation Status: DNR/DNI:Do Not Resuscitate/Intubate Total time 35 minutes; >50% face to face with patient and/or family, providing counselling regarding plans and recommendations, and in care coordination with his/her medical teams. I also spent an additional [ ] minutes counseling for advanced care planning with the patient/the patients family/the surrogate decision maker. Palliative Brief Note Date of Service Aug 19, [address] Ramires made morning rounds to follow-up on pain management. Subjective: the patient is awake, lying supine in bed. Complains of fatigue and weakness. Just returned from radiation treatment this morning. He and daughter are concerned that he has had no BM x6 days. Exam: General: thin, head and neck unremarkable, Lungs: clear Heart: S1,S2, rrr, no murmur. Abdomen: flat, soft, nontender Extremeites: no edema Musculoskeletal: generalized full body weakness, needed full 1P assist to get from W/C to bed. Strength in bilateral lower legs is equal with good flexion and extension of feet/legs Neuro: CN2-12 nonfocal. Motor and sensory intact. Tory Ramires MD Aug 19, 2016 11:26
--- NOTE | 2016-08-19 14:15 | NUR ---
NUTRITION FOLLOW-UP: ASSESS: 81 YO M admit with abdominal/back pain and h/o prostate CA with abdominal CT showing severe metastatic disease, palliative care following for pain management. Pt from [place]. Goals of care discussed with Palliative team. Plan is that he will go for simulation today and start his radiation on 08/17. He will need 10 sessions of radiation therapy; Case Management attempting to locate SNF that will take him during his radiation therapy . Noted poor oral intake prior to admit 2/2 abdominal pain. Pt. has had no bowel movement since admit x 4 D. PMHX: Prostate CA, HTN DIET: General. PO intake bites - 255 trays. LABS: K+ 3.4, Chloride 96, Cr 0.72, Glu 102, Ca 8.1, Alb 2.6. MEDS: Reviewed GI: No BM SKIN: Chet 19 WEIGHT: 68.5 kg, BMI 23.0 kg/m2. Admit weight: 62.4kg, BMI 21.0 EST.NEEDS: CANCER (30-35kcal/kg;1.0-1.5g/kgpro) Kcal:[id number] Pro: 60-95g NUTRITION DIAGNOSIS: (1) Increased energy/protein needs related to increased demand for nutrients as evidenced by Cancer dx - PERSISTS. (2) Inadequate oral intake related to inability to consume sufficient energy, as evidenced by poor PO since admit x 4 D. INTERVENTION: (1) Supplements added BID. (2) Potential for nutrition support not discussed with patient and family at this point. MONITOR/EVALUATE: Diet adv/tolerance, po intake, labs, GI status, Goals of care. Follow-up per high risk.
--- NOTE | 2016-08-19 14:25 | NUR ---
constipation pt had high volume enema, with mod amt liquid stool results, there was no solid fecal matter. Pt felt a little better but still having back pain.
[2016-08-19 15:51] VITALS: BP 178/78; PULSE 67; RESP 18; O2SAT 90
--- NOTE | 2016-08-19 17:30 | NUR ---
Social Work- Continued D/C Planning Data: EMR reviewed. Pt is on day 4 of hospitalization for hyponatremia per H&P. Pt is not medically stable for discharge. Pt still has not had a BM. Pt is on day 3 of radiation. SW followed up with Frances Narayan, pt's daughter and DPOA, regarding potential discharge to SNF to complete radiation. PT recommending 24/7 family support, pending pt's progression with PT. SNF choice list provided. SW made referral to [facility] (1[facility] choice), [facility], and [facility]. Access given. Facesheet and PASRR faxed. PASRR in folder. SW spoke with Frances at length regarding insurance questions and discharge plan. SW [employer] consulted regarding pt's insurance coverage. Pt has no medication benefits (Part D) under [facility] at this time. Pt is 10% service connected through [place]. SW will continue to follow. Assessment: Pt who may benefit from SNF. Plan: Evolving. Pt may discharge to SNF to complete radiation pending clinical course. SW will continue to follow. LATOYA Purcell
--- NOTE | 2016-08-19 19:30 | PCM.PNMED ---
Subjective Date of Service Aug 19, 2016 Subjective Patient is seen and examined. He is more lucid and clear today and thought processes. He says that maybe he should have. Attention to the right people telling him the right things in the past. Instead he feels he noted advice he received regarding his prostate, prostate cancer treatments. He feels this way because radiation is indeed helping his pain. He said he was able to have a bowel movement this morning after trying enema though he feels he could try it one more time he did have a bowel movement. Discussed his radiation plan possibility of discharge with him. He denies overnight fevers chills nausea vomiting. His home medication abiratone is being given to him for staph Exam Vital Signs Vital Sign - Last Date Time Temp Pulse Resp B/P Pulse Ox O2 Delivery O2 Flow Rate FiO2 08/19/16 15:51 36.9 67 18 178/78 90 Room Air 08/16/16 06:13 2.00 Intake and Output 08/18/16 08/18/16 08/19/16 Cumulative From/Thru 15:00 23:00 07:00 08/14/16 19:29 - 08/19/16 06:05 Intake Total 636 ml 400 ml 9998 ml Output Total 5475 ml Balance 636 ml 400 ml 4523 ml Intake Oral 636 ml 400 ml 4546 ml IV Total 5452 ml Output Urine Total 5475 ml # Voids 6 3 12 # Bowel Movements 0 0 0 Exam Gen.: No acute distress HEENT: Normocephalic, atraumatic Heart: Regular rate and rhythm no S3 or S4 murmurs Lungs clear to auscultation anteriorly no crackles or wheezes appreciated Abdomen: Normal bowel sounds are present. Nontender flat Extremities: Without any edema Psych mood is pleasant affect neutral Neuro no focal deficits IVs and Medications IV Fluids None Medications Reviewed: Medications were reviewed in detail Lab and Diagnostics Result Diagram: 08/19/16 0610 08/19/16 0610 X-Rays, CTs and MRIs PROCEDURE: X-RAY ACUTE ABDOMINAL SERIES IMPRESSION: Normal bowel gas pattern. Moderate amount of stool in colon. Dictated by: Gabbie Sommer M.D. on 08/14/2016 at 21:58 Approved by: Gabbie Sommer M.D. on 08/14/2016 at 22:01 Assessment & Plan 81 year old male with prostate cancer presents to the ED via EMS with bilateral lower back pain and abdominal pain for 1.5 week. 1. Hypokalemia, acute, present on admission, active. - K of 2.5 on admission. Patient received 20 mEq of potassium IV in the ED. - EKG normal. - Continue to monitor K and replete if low. With in Normal today 2. 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 Spoke with radiation oncologist on-call today and he feels he can start by radiating that he can area that is causing the spinal cord compression And repeat scans as needed a follow-up therapy is needed. For now the plan is for the patient to completing of radiation to get some level of pain relief and then possibly plan trip back to [place] - Palliative care managing his pain medications, he appears to be comfortable on fentanyl patch. They also started him on dexamethasone and discontinue prednisone. - Plan to continue radiation therapy. Today day#3 of radiation therapy today -- Continue his by mouth medication for prostate cancer as above 3. Bilateral lower back pain, acute, present on admission, active. - Concerning for bone metastasis as a source of alkaline phosphatase elevated. . - Pain control per palliative care 4. Right lower quadrant abdominal pain, acute, present on admission, active: Moderate amount of stool noted on his CT scan - Normal abdominal XR with no sign of obstruction. Active bowel sound on exam. - Likely secondary to referral pain from bone metastases. 5. Constipation - Miralax and Senna PRN. Added Dulcolax when necessary suppository. -Since he was unable to have bowel movements of mag citrate as well as injection we will give him 1 time Fleet Enema: He had a bowel movement today, will try another round of enema tomorrow 5. Hypertension, chronic, stable. - Elevated BP likely secondary to pain. -Continue home meds: HCTZ 25mg daily and Valsartan. - Continue to monitor vital signs. 6. Prostate cancer, chronic, active. - Follow up with oncology as outpatient. - Continue Tamsulosin 7. Urinary incontinence, chronic, presume stable. - Continue Oxybutynin Disposition: We will discharge patient back to his daughter's house in [facility] following his radiation therapy GI Prophylaxis: H2 amilcar VTE Prophylaxis: Sub-Q Heparin (Unfractionated), SCDs VTE Mechanical Devices: Intermittant Pneumatic CD Resuscitation Status: DNR/DNI:Do Not Resuscitate/Intubate Racquel Forman DO Aug 19, 2016 19:30
--- NOTE | 2016-08-19 20:00 | NUR ---
anxiety/ agitation patient very anxious. agitated. states "i am leaving the hospital at 8pm. i have to get dressed and go right now." attempted to reorient patient. unsuccesful. tried to call daughter. number does not go through. patient refuses to sit down. refuses to go back to bed. impulsive. unable to reason with patient. requested sitter. sitter to bedside. jasper and bed alarm on. patient denies that he needs the restroom. care ongoing. Addendum: 08/19/16 at 2031 by DAMIÁN AGUILAR RN patient now back in bed. watching television. one side rail down. sitter at bedside.
[2016-08-19 20:10] VITALS: BP 168/85; PULSE 92; RESP 16; O2SAT 96
--- NOTE | 2016-08-19 20:49 | NUR ---
refused evening medications patient refused all evening medications. states "i don't want them": insisted on putting on own pants from home (slacks). states again "i am waiting to leave." unable to reorient. bed alarm on. jasper alarm on. sitter 2:1 outside of room.
[2016-08-20] MEDS: Heparin 5,000 Unit/mL Inj SUBQ SCH ×3 (00:30→16:36)
[2016-08-20 05:35] VITALS: BP 176/46; PULSE 66; RESP 17; O2SAT 97
[2016-08-20 06:43] VITALS: BP 178/85
--- NOTE | 2016-08-20 06:44 | NUR ---
sleep patient restless until 0100. refused all medications. did sleep quietly when he fell asleep. supportive care given
[2016-08-20 06:45] LABS: BASOPHILS % (AUTO) 0.3 % (0-3); MONOCYTES % (AUTO) 9.8 % (4-12); Mean Corpuscular Hemoglobin 30.1 pg (27.0-35.0); Mean Corpuscular Volume 85.6 fL (81-100); NEUTROPHILS % (AUTO) 74.6 % (40-74); Platelet Count 218 bil/L (150-400)
[2016-08-20] MEDS ORDERED: Potassium Chloride 20 mEq SR Tablet PO ONE (08:30)
[2016-08-20] MEDS: Fluticasone 0.05% 15 Spray/2 Gm 16 Gm Nasal Spray NASAL SCH (10:12)
[2016-08-20] MEDS: ABIRATERONE PO SCH (10:12)
[2016-08-20] MEDS: Senna-Docusate 8.6-50 mg Tablet PO SCH ×2 (10:15→20:58)
[2016-08-20] MEDS: Omega-3 Fatty Acids 1,000 mg Capsule PO SCH ×2 (10:15→20:48)
[2016-08-20 10:40] VITALS: BP 180/60; PULSE 72; RESP 18; O2SAT 98
[2016-08-20] MEDS ORDERED: PEG/Electrolytes 4,000 mL Solution PO ONE (15:05)
--- NOTE | 2016-08-20 15:28 | DRSVH ---
PROCEDURE: X-RAY ACUTE ABDOMINAL SERIES ([id number]) INDICATIONS: obstipation TECHNIQUE: One view chest and two views of the abdomen were acquired. COMPARISON: [facility], CT, CT CHEST W CON, 08/15/2016, 14:14. [facility], C R, XR ABD ACUTE SERIES 3VW, 08/14/2016, 21:09. FINDINGS: Surgical changes and devices: There is a penile prosthesis partially visualized. Chest: No acute consolidation. There are a few small peripheral nodules bilaterally measuring up to approximately 3-4 mm. Heart size is normal. There calcified mediastinal lymph nodes consistent wit h old granulomatous disease. No pleural effusions. No pneumoperitoneum. Abdomen: Bowel gas pattern demonstrates moderate stool distention of the ascending and transverse co den with mild gaseous distention in the descending and rectosigmoid colon. There is a paucity of sma ll bowel gas. No suspicious calcifications. Bones: There are scattered sclerotic lesions within the visualized osseous structures consistent with metastatic disease as demonstrated on the prior CT. IMPRESSION: 1. Moderate stool distention in the proximal colon compatible with patient's reported history of obs tipation. No definite evidence of small bowel obstruction. 2. Small peripheral nodular opacities in the lungs bilaterally. The left lung nodule corresponds to a calcified granuloma on the recent CT. Peripheral nodular opacities in the right upper lung zone s een on the prior study have decreased in prominence. There are peripheral small cluster of nodular o pacities in the right lung base which are nonspecific but suggestive of an infectious or inflammatory process. 3. Scattered sclerotic osseous lesions redemonstrated consistent with blastic metastatic disease. Dictated by: Juno Lux M.D. on 08/20/2016 at 15:20 Approved by: Juno Lux M.D. on 08/20/2016 at 15:26
[2016-08-20 18:48] VITALS: BP 175/62; PULSE 75; RESP 18; O2SAT 97
--- NOTE | 2016-08-20 19:26 | NUR ---
Enema Enema administered as ordered. Patient tolerated administration well, after 15 min had return of slightly discolored enema fluid, no stool. Care is ongoing.
--- NOTE | 2016-08-20 20:01 | DRSVH ---
PROCEDURE: CT ABDOMEN AND PELVIS WITH CONTRAST ([id number]) INDICATIONS: 81 year-old male with history of prostate cancer and constipation presenting for evaluat ion of possible rectal mass. TECHNIQUE: After the administration of oral and intravenous contrast, 5 mm thick sections acquired from the diap hragms to the symphysis. 5 mm thick coronal and sagittal reformats were performed. For radiation do se reduction, the following was used: automated exposure control, adjustment of mA and/or kV accordi ng to patient size. COMPARISON: [facility], CT, CT ABD PELVIS W CON, 08/15/2016, 1:10. FINDINGS: Image quality: Excellent. ABDOMEN: Lung bases: There are small bilateral pleural effusions with mild compressive atelectasis. Heart siz e is normal. Solid organs: There is hypoattenuation of the liver consistent with fatty infiltration. 2 hepatic cy sts are redemonstrated. Gallbladder is within normal limits without calcified gallstones. Biliary s ystem is non-dilated. Pancreas enhances normally. No adrenal nodules. Kidneys are normal in size a nd enhancement, without hydronephrosis. Peritoneum and bowel: Stomach, small bowel, and colon loops are normal in wall thickness. No defini te intraluminal mass lesion identified. There is moderate colonic stool demonstrated. No free fluid or air. Nodes and vessels: No retroperitoneal or mesenteric adenopathy. Aorta and inferior vena cava are no rmal in caliber. Miscellaneous: No ventral hernias. PELVIS: Genitourinary: Bladder wall thickness is normal. Miscellaneous: No inguinal hernias or adenopathy. Bones: There are innumerable sclerotic lesions redemonstrated in the visualized osseous structures a s well as scattered lytic lesions including within the T10 vertebral body. Findings are consistent w ith metastatic disease and are similar to the prior study. IMPRESSION: 1. No definite intraluminal mass lesions demonstrated within the colon. 2. Diffuse osseous metastatic disease redemonstrated. The Dictated by: Juno Lux M.D. on 08/20/2016 at 19:50 Approved by: Juno Lux M.D. on 08/20/2016 at 19:59
[2016-08-20 20:20] VITALS: BP 138/70; PULSE 75; RESP 18; O2SAT 96
--- NOTE | 2016-08-20 21:21 | PCM.PNMED ---
Subjective Date of Service Aug 20, 2016 Subjective Patient is seen and examined. He did not have any bowel movements per records in that regard he had one yesterday after the enema. There is a second enema is not attempted. Abdominal film is performed and showed concern for moderate stool as before. A CT with rectal and by mouth contrast is performed and once again did not reveal any new information. Rectal exam showed enlarged prostate but not much stool in the rectal vault. He was slightly agitated overnight for staff Exam Vital Signs Vital Sign - Last Date Time Temp Pulse Resp B/P Pulse Ox O2 Delivery O2 Flow Rate FiO2 08/20/16 20:20 36.7 75 18 138/70 96 Room Air 08/16/16 06:13 2.00 Intake and Output 08/19/16 08/19/16 08/20/16 Cumulative From/Thru 15:00 23:00 07:00 08/14/16 19:29 - 08/20/16 05:35 Intake Total 440 ml 350 ml 72259 ml Output Total 1000 ml 6475 ml Balance -560 ml 350 ml 4313 ml Intake Oral 440 ml 350 ml 5336 ml IV Total 5452 ml Output Urine Total 1000 ml 6475 ml # Voids 5 17 # Bowel Movements 0 Exam Gen.: A colon laying in bed no acute distress HEENT: Normocephalic, atraumatic Heart: Regular rate and rhythm no murmurs Lungs clear to auscultation no crackles or wheezes Abdomen nontender, normal bowel sounds Extremities negative for edema Psychiatric negative for anxiety Neuro no focal deficits IVs and Medications IV Fluids None Medications Reviewed: Medications were reviewed in detail Lab and Diagnostics Result Diagram: 08/20/16 0615 08/20/16 0615 X-Rays, CTs and MRIs PROCEDURE: X-RAY ACUTE ABDOMINAL SERIES IMPRESSION: Normal bowel gas pattern. Moderate amount of stool in colon. Dictated by: Gabbie Sommer M.D. on 08/14/2016 at 21:58 Approved by: Gabbie Sommer M.D. on 08/14/2016 at 22:01 [facility] Diagnostic Imaging Department [place], [place] [id number] Patient Name: VALENCIA HAN MR#: [id number] Location: [facility] Ordering Phys: Racquel Forman DO Date of Service: 08/20/16 1519 PROCEDURE: CT ABDOMEN AND PELVIS WITH CONTRAST ([id number]) INDICATIONS: 81 year-old male with history of prostate cancer and constipation presenting for evaluation of possible rectal mass. TECHNIQUE: After the administration of oral and intravenous contrast, 5 mm thick sections acquired from the diaphragms to the symphysis. 5 mm thick coronal and sagittal reformats were performed. For radiation dose reduction, the following was used : automated exposure control, adjustment of mA and/or kV according to patient size. COMPARISON: [facility], CT, CT ABD PELVIS W CON, 08/15/2016, 1:10. FINDINGS: Image quality: Excellent. ABDOMEN: Lung bases: There are small bilateral pleural effusions with mild compressive atelectasis. Heart size is normal. Solid organs: There is hypoattenuation of the liver consistent with fatty infiltration. 2 hepatic cysts are redemonstrated. Gallbladder is within normal limits without calcified gallstones. Biliary system is non-dilated. Pancreas enhances normally. No adrenal nodules. Kidneys are normal in size and enhancement, without hydronephrosis. Peritoneum and bowel: Stomach, small bowel, and colon loops are normal in wall thickness. No definite intraluminal mass lesion identified. There is moderate colonic stool demonstrated. No free fluid or air. Nodes and vessels: No retroperitoneal or mesenteric adenopathy. Aorta and inferior vena cava are normal in caliber. Miscellaneous: No ventral hernias. PELVIS: Genitourinary: Bladder wall thickness is normal. Miscellaneous: No inguinal hernias or adenopathy. Bones: There are innumerable sclerotic lesions redemonstrated in the visualized osseous structures as well as scattered lytic lesions including within the T10 vertebral body. Findings are consistent with metastatic disease and are similar to the prior study. IMPRESSION: 1. No definite intraluminal mass lesions demonstrated within the colon. 2. Diffuse osseous metastatic disease redemonstrated. The Dictated by: Juno Lux M.D. on 08/20/2016 at 19:50 Approved by: Juno Lux M.D. on 08/20/2016 at 19:59 Assessment & Plan 81 year old male with prostate cancer presents to the ED via EMS with bilateral lower back pain and abdominal pain for 1.5 week. 1. Hypokalemia, acute, present on admission, active. - K of 2.5 on admission. Patient received 20 mEq of potassium IV in the ED. - EKG normal. - Continue to monitor K and replete if low. 2. 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 Spoke with radiation oncologist on-call today and he feels he can start by radiating that he can area that is causing the spinal cord compression And repeat scans as needed a follow-up therapy is needed. For now the plan is for the patient to completing of radiation to get some level of pain relief and then possibly plan trip back to [place] - Palliative care managing his pain medications, he appears to be comfortable on fentanyl patch. They also started him on dexamethasone and discontinue prednisone. - Plan to continue radiation therapy. Today day four of radiation therapy today -- Continue his by mouth medication for prostate cancer as above 3: Obstipation: As evidenced by [address] abdominopelvic with by mouth and rectal contrast done today, no additional information is revealed. He drank CT contrast but that did not cause bowel movements. GI consult will be considered 3. Bilateral lower back pain, acute, present on admission, active. - Concerning for bone metastasis as a source of alkaline phosphatase elevated. . - Pain control per palliative care -- - Miralax and Senna PRN. Added Dulcolax when necessary suppository. -Since he was unable to have bowel movements of mag citrate as well as injection we have given him 1 time Fleet Enema without results 4. Right lower quadrant abdominal pain, acute, present on admission, active: Moderate amount of stool noted on his CT scan - Normal abdominal XR with no sign of obstruction. Active bowel sound on exam. - Likely secondary to referral pain from bone metastases. 5. Hypertension, chronic, stable. - Elevated BP likely secondary to pain. -Continue home meds: HCTZ 25mg daily and Valsartan. - Continue to monitor vital signs. 6. Prostate cancer, chronic, active. - Follow up with oncology as outpatient. - Continue Tamsulosin 7. Urinary incontinence, chronic, presume stable. - Continue Oxybutynin Disposition: We will discharge patient back to his daughter's house in [facility] following his radiation therapy Pain Evaluation: Adequate Pain Control GI Prophylaxis: H2 amilcar VTE Prophylaxis: Sub-Q Heparin (Unfractionated), SCDs VTE Mechanical Devices: Intermittant Pneumatic CD Resuscitation Status: DNR/DNI:Do Not Resuscitate/Intubate Racquel Forman DO Aug 20, 2016 21:21
[2016-08-21] MEDS: Heparin 5,000 Unit/mL Inj SUBQ SCH ×4 (00:30→17:22)
[2016-08-21 05:31] VITALS: BP 147/70; PULSE 69; RESP 16; O2SAT 95
--- NOTE | 2016-08-21 06:58 | NUR ---
sleep patient slept well. up at 0230 to void alert to person and place. unsteady gait, requires nursing assist care ongoing
[2016-08-21 07:08] LABS: BASOPHILS % (AUTO) 0.2 % (0-3); EOSINOPHILS % (AUTO) 1.8 % (0-5); MONOCYTES % (AUTO) 9.7 % (4-12); Mean Corpuscular Hemoglobin 29.7 pg (27.0-35.0); Mean Corpuscular Volume 86.2 fL (81-100); NEUTROPHILS % (AUTO) 74.4 % (40-74); Platelet Count 206 bil/L (150-400)
[2016-08-21] MEDS: Fluticasone 0.05% 15 Spray/2 Gm 16 Gm Nasal Spray NASAL SCH (08:30)
[2016-08-21] MEDS: ABIRATERONE PO SCH (08:43)
[2016-08-21] MEDS: Omega-3 Fatty Acids 1,000 mg Capsule PO SCH ×2 (08:45→20:59)
[2016-08-21] MEDS: Senna-Docusate 8.6-50 mg Tablet PO SCH ×2 (08:46→20:59)
[2016-08-21 11:09] VITALS: BP 147/75; PULSE 78; RESP 18; O2SAT 97
--- NOTE | 2016-08-21 13:36 | NUR ---
Fentanyl Patch, Pain Fentanyl patch applied per orders. Patch applied to left upper arm. Previous patch on right upper arm removed and discarded in waste container. Patient states that ordered pain medications keep pain within a tolerable level. Care is ongoing. Addendum: 08/21/16 at 1833 by ILA LEON RN Enema, Colyte Enema administered as ordered. No stool moved after enema administration. Colyte ordered if enema produces no effects, administration started at 1800. Care is ongoing.
[2016-08-21] MEDS ORDERED: PEG/Electrolytes 4,000 mL Solution PO ONE (18:00)
[2016-08-21 18:28] VITALS: BP 145/73; PULSE 74; RESP 18; O2SAT 96
--- NOTE | 2016-08-21 19:33 | PCM.PNMED ---
Subjective Date of Service Aug 21, 2016 Subjective Patient's daughter states that patient has been moving much more easily. He is eating better and seems to be in better spirits Patient and daughter are concerned that he has had no sizable bowel movements. We have tried all avenues including but not limited to by mouth laxatives, suppositories, mag citrate, enema, opioid antagonist injections, by mouth CT scan contrast. Patient is willing to try Gastrografin contrast enema today. No other concerns Exam Vital Signs Vital Sign - Last Date Time Temp Pulse Resp B/P Pulse Ox O2 Delivery O2 Flow Rate FiO2 08/21/16 05:31 36.8 69 16 147/70 95 Room Air 08/16/16 06:13 2.00 Intake and Output 08/20/16 08/20/16 08/21/16 Cumulative From/Thru 15:00 23:00 07:00 08/14/16 19:29 - 08/21/16 05:23 Intake Total 840 ml 300 ml 35972 ml Output Total 650 ml 7125 ml Balance 840 ml -350 ml 4803 ml Intake Oral 840 ml 300 ml 6476 ml IV Total 5452 ml Output Urine Total 650 ml 7125 ml # Voids 7 4 28 # Bowel Movements 0 0 0 Exam Gen.: No acute distress laying in bed HEENT: Normocephalic, atraumatic Heart: Regular rate and rhythm no S3-S4 sounds Lungs: CTA no crackles or wheezes Abdomen flat nontender nondistended normal bowel sounds are present Extremities moving his extremities with ease Psych: Negative for anxiety Neuro: No focal deficits IVs and Medications IV Fluids None Medications Reviewed: Medications were reviewed in detail Lab and Diagnostics Laboratory Tests Test 08/21/16 06:31 White Blood Count 5.0th/mm3 (3.8-10.1) Red Blood Count 4.07mil/mm3 (4.40-5.80) Hemoglobin 12.1g/dL (13.8-17.2) Hematocrit 35.1% (41.0-50.0) Mean Corpuscular Volume 86.2fL (81-100) Mean Corpuscular Hemoglobin 29.7pg (27.0-35.0) Mean Corpuscular Hemoglobin Concent 34.5% (32.0-37.0) Red Cell Distribution Width 13.1% (12.3-15.4) Platelet Count 206bil/L (150-400) Neutrophils (%) (Auto) 74.4% (40-74) Lymphocytes (%) (Auto) 13.1% (14-46) Monocytes (%) (Auto) 9.7% (4-12) Eosinophils (%) (Auto) 1.8% (0-5) Basophils (%) (Auto) 0.2% (0-3) Sodium Level 134mEq/L (134-144) Potassium Level 4.2mEq/L (3.5-5.2) Chloride Level 95mEq/L (97-108) Carbon Dioxide Level 28mmol/L (18-29) Blood Urea Nitrogen 12mg/dL (8-27) Creatinine 0.74mg/dL (0.76-1.27) Estimat Glomerular Filtration Rate 107mL/min (>59) Glucose Level 105mg/dL (60-99) Calcium Level 9.0mg/dL (8.5-10.1) Total Bilirubin 0.8mg/dL (0.0-1.2) Aspartate Amino Transf (AST/SGOT) 23U/L (0-50) Alanine Aminotransferase (ALT/SGPT) 17U/L (0-44) Alkaline Phosphatase 346U/L (25-160) Total Protein 5.7g/dL (6.4-8.4) Albumin 3.7g/dL (3.4-5.0) Result Diagram: 08/20/1615 08/20/16 0615 X-Rays, CTs and MRIs PROCEDURE: X-RAY ACUTE ABDOMINAL SERIES IMPRESSION: Normal bowel gas pattern. Moderate amount of stool in colon. Dictated by: Gabbie Sommer M.D. on 08/14/2016 at 21:58 Approved by: Gabbie Sommer M.D. on 08/14/2016 at 22:01 [facility] Diagnostic Imaging Department [place], [place] [id number] Patient Name: VALENCIA HAN MR#: [id number] Location: [facility] Ordering Phys: Racquel Forman DO Date of Service: 08/20/16 1519 PROCEDURE: CT ABDOMEN AND PELVIS WITH CONTRAST ([id number]) INDICATIONS: 81 year-old male with history of prostate cancer and constipation presenting for evaluation of possible rectal mass. TECHNIQUE: After the administration of oral and intravenous contrast, 5 mm thick sections acquired from the diaphragms to the symphysis. 5 mm thick coronal and sagittal reformats were performed. For radiation dose reduction, the following was used : automated exposure control, adjustment of mA and/or kV according to patient size. COMPARISON: [facility], CT, CT ABD PELVIS W CON, 08/15/2016, 1:10. FINDINGS: Image quality: Excellent. ABDOMEN: Lung bases: There are small bilateral pleural effusions with mild compressive atelectasis. Heart size is normal. Solid organs: There is hypoattenuation of the liver consistent with fatty infiltration. 2 hepatic cysts are redemonstrated. Gallbladder is within normal limits without calcified gallstones. Biliary system is non-dilated. Pancreas enhances normally. No adrenal nodules. Kidneys are normal in size and enhancement, without hydronephrosis. Peritoneum and bowel: Stomach, small bowel, and colon loops are normal in wall thickness. No definite intraluminal mass lesion identified. There is moderate colonic stool demonstrated. No free fluid or air. Nodes and vessels: No retroperitoneal or mesenteric adenopathy. Aorta and inferior vena cava are normal in caliber. Miscellaneous: No ventral hernias. PELVIS: Genitourinary: Bladder wall thickness is normal. Miscellaneous: No inguinal hernias or adenopathy. Bones: There are innumerable sclerotic lesions redemonstrated in the visualized osseous structures as well as scattered lytic lesions including within the T10 vertebral body. Findings are consistent with metastatic disease and are similar to the prior study. IMPRESSION: 1. No definite intraluminal mass lesions demonstrated within the colon. 2. Diffuse osseous metastatic disease redemonstrated. The Dictated by: Juno Lux M.D. on 08/20/2016 at 19:50 Approved by: Juno Lux M.D. on 08/20/2016 at 19:59 [facility] Diagnostic [place] [address] Patient Name: VALENCIA HAN MR#: [id number] Location: [facility] Ordering Phys: Racquel Forman DO Date of Service: 08/20/16 7719 PROCEDURE: CT ABDOMEN AND PELVIS WITH CONTRAST ([id number]) INDICATIONS: 81 year-old male with history of prostate cancer and constipation presenting for evaluation of possible rectal mass. TECHNIQUE: After the administration of oral and intravenous contrast, 5 mm thick sections acquired from the diaphragms to the symphysis. 5 mm thick coronal and sagittal reformats were performed. For radiation dose reduction, the following was used : automated exposure control, adjustment of mA and/or kV according to patient size. COMPARISON: [facility], CT, CT ABD PELVIS W CON, 08/15/2016, 1:10. FINDINGS: Image quality: Excellent. ABDOMEN: Lung bases: There are small bilateral pleural effusions with mild compressive atelectasis. Heart size is normal. Solid organs: There is hypoattenuation of the liver consistent with fatty infiltration. 2 hepatic cysts are redemonstrated. Gallbladder is within normal limits without calcified gallstones. Biliary system is non-dilated. Pancreas enhances normally. No adrenal nodules. Kidneys are normal in size and enhancement, without hydronephrosis. Peritoneum and bowel: Stomach, small bowel, and colon loops are normal in wall thickness. No definite intraluminal mass lesion identified. There is moderate colonic stool demonstrated. No free fluid or air. Nodes and vessels: No retroperitoneal or mesenteric adenopathy. Aorta and inferior vena cava are normal in caliber. Miscellaneous: No ventral hernias. PELVIS: Genitourinary: Bladder wall thickness is normal. Miscellaneous: No inguinal hernias or adenopathy. Bones: There are innumerable sclerotic lesions redemonstrated in the visualized osseous structures as well as scattered lytic lesions including within the T10 vertebral body. Findings are consistent with metastatic disease and are similar to the prior study. IMPRESSION: 1. No definite intraluminal mass lesions demonstrated within the colon. 2. Diffuse osseous metastatic disease redemonstrated. The Dictated by: Juno Lux M.D. on 08/20/2016 at 19:50 Approved by: Juno Lux M.D. on 08/20/2016 at 19:59 Assessment & Plan 81 year old male with prostate cancer presents to the ED via EMS with bilateral lower back pain and abdominal pain for 1.5 week. 1. Hypokalemia, acute, present on admission, active. - K of 2.5 on admission. Patient received 20 mEq of potassium IV in the ED. - EKG normal. - Continue to monitor K and replete if low. 2. 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 Spoke with radiation oncologist on-call today and he feels he can start by radiating that he can area that is causing the spinal cord compression And repeat scans as needed a follow-up therapy is needed. For now the plan is for the patient to completing of radiation to get some level of pain relief and then possibly plan trip back to [place] - Palliative care managing his pain medications, he appears to be comfortable on fentanyl patch. They also started him on dexamethasone and discontinued prednisone. - Plan to continue radiation therapy. Today day four of radiation therapy today -- Continue his by mouth medication for prostate cancer as above -- Is currently on a break from radiation this week and 3: Obstipation: As evidenced by [address] abdominopelvic with by mouth and rectal contrast done today, no additional information is revealed. He drank CT contrast for the CT with IV, by mouth, rectal contrast. But that did not cause bowel movements. That scan showed passage of contrast without a problem. -- He is moving around more, this looks encouraging as this will help to move his bowels -- So far we tried laxatives, osmotic agents, enema, opioid antagonist injection , CT contrast, rectal suppositories, mag citrate without much result -- Ordered GoLYTELY for tonight -- A repeat injection can be considered tomorrow -- GI consult will be considered on Monday 3. Bilateral lower back pain, acute, present on admission, active. - Concerning for bone metastasis as a source of alkaline phosphatase elevated. . - Pain control per palliative care -- - Miralax and Senna PRN. Added Dulcolax when necessary suppository. 4. Right lower quadrant abdominal pain, acute, present on admission, active: Moderate amount of stool noted on his CT scan - Normal abdominal XR with no sign of obstruction. Active bowel sound on exam. - Likely secondary to referral pain from bone metastases. 5. Hypertension, chronic, stable. - Elevated BP likely secondary to pain. -Continue home meds: HCTZ 25mg daily and Valsartan. - Continue to monitor vital signs. 6. Prostate cancer, chronic, active. - Follow up with oncology as outpatient. - Continue Tamsulosin 7. Urinary incontinence, chronic, presume stable. - Continue Oxybutynin Disposition: We will discharge patient back to his daughter's house in [facility] following his radiation therapy Pain Evaluation: Adequate Pain Control GI Prophylaxis: H2 amilcar VTE Prophylaxis: Sub-Q Heparin (Unfractionated), SCDs VTE Mechanical Devices: Intermittant Pneumatic CD Resuscitation Status: DNR/DNI:Do Not Resuscitate/Intubate Racquel Forman DO Aug 21, 2016 06:20
[2016-08-21 19:58] VITALS: BP 163/68; PULSE 66; RESP 18; O2SAT 96
--- NOTE | 2016-08-21 23:02 | NUR ---
BM Patient drank most of a jug of golyte-refused last 300ml. Pt had productive BM-soft, substantial amount Daughter phoned and was advised. Pt sleeping and has 0 c/o abdominal pain
[2016-08-22] MEDS: Heparin 5,000 Unit/mL Inj SUBQ SCH ×3 (01:08→17:06)
--- NOTE | 2016-08-22 05:14 | NUR ---
Activity/BM Pt has had 4 BMs post golytely so far this shift and reports feeling so much better. However due to increased BMs, pt has been impulsive and not using call light to get up. [place] alarm on but pt is quick and unsteady on feet. 1:1 sitter initiated for safety.
[2016-08-22 05:27] VITALS: BP 137/76; PULSE 79; RESP 16; O2SAT 97
[2016-08-22 06:42] LABS: BASOPHILS % (AUTO) 0.2 % (0-3); EOSINOPHILS % (AUTO) 2.2 % (0-5); MONOCYTES % (AUTO) 9.4 % (4-12); Mean Corpuscular Hemoglobin 29.4 pg (27.0-35.0); Mean Corpuscular Volume 87.3 fL (81-100); NEUTROPHILS % (AUTO) 66.7 % (40-74); Platelet Count 206 bil/L (150-400)
[2016-08-22] MEDS: Senna-Docusate 8.6-50 mg Tablet PO SCH ×2 (08:30→21:05)
[2016-08-22 09:07] VITALS: BP 160/72; PULSE 72; RESP 16; O2SAT 98
[2016-08-22] MEDS: Fluticasone 0.05% 15 Spray/2 Gm 16 Gm Nasal Spray NASAL SCH (09:11)
[2016-08-22] MEDS: ABIRATERONE PO SCH (09:11)
[2016-08-22] MEDS: Omega-3 Fatty Acids 1,000 mg Capsule PO SCH ×2 (09:12→21:07)
--- NOTE | 2016-08-22 11:10 | NUR ---
Pt To Radiation Care-[facility] picked up pt in wheelchair and wheeled him out of hospital over to [facility] for daily radiation treatment. Pt A&Ox3, up with SBA to wheelchair, IV SL and on RA, VSS, No c/o pain.
--- NOTE | 2016-08-22 11:31 | NUR ---
Tatiana Martin can accept with Dr. Schreiber to follow. [facility] would like to complete onsite when appropriate. LATOYA Lorenzana
--- NOTE | 2016-08-22 11:32 | NUR ---
Leti can accept with [facility] to follow, radiation transport is additional per hour. Transport to radiation is $43.00 per day. 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
--- NOTE | 2016-08-22 12:00 | PCM.PALLBR ---
Palliative Care Recommendation The patient is a very pleasant 81-year-old gentleman with a history of prostate cancer diagnosed and treated 18 years ago. This was reportedly in remission until 1-1/2 years ago when he was found to have metastatic disease. 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 The most severe lesion is at T10 vertebral body which shows a large mass up to 6 cm with epidural and paraspinal extension which may be largely responsible for his pain in the bilateral lower back region. PEr [place] medical records: Mr. Ross started seeing Dr. Susan Arreaga 2014 for his prostate cancer recurrence at [facility] (formerly [facility] and was treated only with ADT (androgen deprivation therapy) in the form of leuprolide injections which worked for some months. Then the cancer stopped responding to it, and he was started on Zytiga (abiraterone acetate). He has not had prior radiation therapy per these [facility] records. Dr. Marek Nettles (radiation oncology) has been consulted and radiation therapy was started on 08/17 with a plan for 10 sessions of radiation therapy, this is con discussion with team today. It is unclear whether the patient can return home or will stay in the hospital during this course of treatment. Summary of palliative recommendations: Symptom management: 08/22: PAIN: no pain issues over the weekend. MAR reviewed: No breakthrough pain meds needed last night. No use of PRN breakthrough pain meds overnight or this morning. Most pain ratings 3-5/10 over weekend. The one time he has more 1. Continue fentanyl 50 mcg/hr, change q 72 hours for long-acting pain medication. Today is day 2. Should be discharged on this medication. 2. For breakthrough pain: oxycodone IR to 10-20mg po q 3 hours for breakthrough pain. 10mg for 1-4/10 pain/15mg for 5-7/10 pain/20mg for 8-10/10 pain. 3. Continue dexamethasone 4mg po q day for bone metastases pain and inflammation. PROCEDURE-related PAIN: Patient does have 8+/10 pain when being transported and during XRT --ADD premedication regime for days that patient receives XRT: --975-1000mg of Tylenol 1-2 hours before transport --15 mg oxycodone IR 30-60 min before transport. CONSTIPATION: patient finally had results this weekend after Go-lightly was added to the regime of miralax, Senna-S, suppositories. Patient now following with a bowel regime and family will be taught how to escalate the plan if no BM in 3 days. Relistor used only once --this might need to be added 1-2 times/ week to his regime. Palliative Care will round today after patient returns from radiation to review effectiveness of pain relief and check on whether bowel regime is understood and tolerated. 1. Continue bowel regime with: -- senna daily, add second dose after no BM for 2 days, 3rd dose for no BM in 3 days. Add docusate 200mg 1-2 times a day as well. --on third day also add miralax, -- relistor as needed; patient may be better managed with relistor 1-2 times a week. (or an oral agent that is equivalent) --Seek outpatient palliative care for bowel management as well as pain control. Goals of Care: Dr. Ramires discussed prognosis at bedside with patient, daughters Salima and Brianna, last week. Everyone understands that Mr. Ross has a terminal illness and the radiation is just to resolve pain and relieve/ prevent spinal cord compression. 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 (see below for additional info re documentation) Disposition: The Shipping Support was in our meeting today to discuss his acceptance with [facility]. The family had wanted him to be at [facility] but then realized that it did not make sense to increase his transport time to XRT, as this is already an issue for him in terms of comfort. They are accepting of [facility]; this is likely to happen tomorrow. DPOA/Advanced Directives/POLST: The patient has completed AD and POLST- equivalent documents in [place] and plans to return there on recovery. He is clear that his Code Status is DNR/DNI -- Today, this race and sports book writer met with the patient and his daughter to discuss the current advance directives that are in place and to explore the advantage of the POLST form. We reviewed his current documents as they are on the daughter Salima's phone. As is turns out, the advance directive he has is somewhat vague about what treatments he might want in the case of his , or in the case of an acute condition. The patient, however, is very clear about certain aspects of his care: he does NOT want CPR or intubation or any machines to prolong his life, including a feeding tube. He DOES want basic medical care for reversible conditions and agrees to hospitalization for antibiotics and other basic medical care to help him recover if this is possible. A [place] POLST is completed at this time to ensure that his wishes are followed on discharge from hospital while he remains in [place]. It states: DNAR/Allow Natural ; limited interventions with Yes to antibiotics for prolonging life, but NO to tube-feeding and NO to ICU level care. The patient verbally agrees to all this and directs his daughter to sign the POLST form today. Copies of the form are given to family and filed with palliative care, and the original is put is his chart for when he discharges to SNF. Family/emotional support: Brianna Vance (daughter on [place], [place]) [phone] Salima Narayan (daughter in [place]) [phone] HOSPITALIST PROBLEM LIST/PLAN per Dr. Forman 08/21/16: 1. Hypokalemia, acute, present on admission, active. - K of 2.5 on admission. Patient received 20 mEq of potassium IV in the ED. 2. 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 They also started him on dexamethasone and discontinued prednisone. - Plan to continue radiation therapy. Today day four of radiation therapy today -- Continue his by mouth medication for prostate cancer as above 3: Obstipation: As evidenced by [address] abdominopelvic with by mouth and rectal contrast done today, no additional information is revealed. He drank CT contrast for the CT with IV, by mouth, rectal contrast. But that did not cause bowel movements. That scan showed passage of contrast without a problem. -- Ordered GoLYTELY with good results --continue more consistent bowel regime 3. Bilateral lower back pain, acute, present on admission, active--Concerning for bone metastasis as a source of alkaline phosphatase elevated. . - Pain control per palliative care 4. Right lower quadrant abdominal pain, acute, present on admission, active: Moderate amount of stool noted on his CT scan - Normal abdominal XR with no sign of obstruction. Active bowel sound on exam. - Likely secondary to referral pain from bone metastases vs constipation/ obstipation 5. Hypertension, chronic, stable. - Elevated BP likely secondary to pain. -Continue home meds: HCTZ 25mg daily and Valsartan. 6. Prostate cancer, chronic, active. - Follow up with oncology as outpatient. - Continue Tamsulosin 7. Urinary incontinence, chronic, presume stable. - Continue Oxybutynin Problems: (1) Prostate cancer Assessment & Plan: per medical and oncology teams Status: Acute ICD Code: C61 (2) Prostate cancer metastatic to bone Assessment & Plan: Undergoing XRT for pain management. Required high level interventions for pain control per research laboratory specialist. Status: Acute ICD Code: C61 (3) Goals of care, counseling/discussion Assessment & Plan: See new POLST completed today. Continue to explore the prior AD to ensure these match the choices made on POLST. Status: Acute ICD Code: Z71.89 (4) Pain Assessment & Plan: Serial adjustments to pain regime by research laboratory specialist now appear to be working well, patient reports pain mostly under 5/ 10. Still increases to 8/10 with XRT and transport. See orders. Status: Acute ICD Code: R52 (5) Palliative care by specialist Assessment & Plan: high level interventions for pain and constipation. Also completion of POLST, clarification of advance directives. Status: Acute ICD Code: Z51.5 End of Life Preferences patient has planned for palliative care in [place] when treatments are no longer providing benefit. Goals of Care control of symptoms, lengthening life with control of disease as long as treatments are not burdensome. Disposition unsure of where patient will be through the next 6 days of XRT--likely SNF. Pt will eventually go back home with dtr here on [place], plans to return to [place] when he is strong enough to make the trip. Resuscitation Status Resuscitation Status: DNR/DNI:Do Not Resuscitate/Intubate Limited Interventions: Medications and IV Fluid POLST Updates/Changes Previous POLST?: No Antibiotics: Use ABX if can Prolong Life Artificially Admin Nutrition: No Artifical Nutrition by Tube POLST Discussed with: Patient, Health Care Agent (DPOAHC) POLST Review Outcome: New Form Completed . Advanced Care Planning Address: POLST Pain: Moderate Symptom management: Constipation Total time 65 minutes; >50% face to face with patient and/or family, providing counselling regarding plans and recommendations, and in care coordination with his/her medical teams. Of this 30 minutes were spent counseling for advanced care planning, completion of POLST, with the patient/the patients family/the surrogate decision maker. copies to: Marek Nettles MD Palliative Brief Note Date of Service Aug 22, 2016 . Pt today having day 4 of 10 XRT treatments. Met with patient and Dtr in room after return. Pt reports that the treatments are stressful, painful to endure, but that he feels pretty good once its over. We discussed strategies to help him cope with the increased pain. Given the position of his lesions, a sitting position with a bumpy transport exacerbates his pain exponentially, and he also doesn't tolerate a full prone position, which is needed for the treatments. It is unlikely that he will qualify though, for a stretcher transport (he is best lying at about 20-30 degrees); this would require an out-of pocket expense. The patient agrees to try a pre-medication regime of tylenol 975-1000 mg around 9am, roughly 2 hours before transport, then a 15 mg dose of oxycodone IR 30-60 min before transport. Discussed with pharmacy and RN who both agree and will pass on. The pharmacist understands that the dose timing may need to be adjusted daily. The daughter is awaiting help from an advocate to settle issues related to his VA and Medicare benefits.--she will be around later today. No further questions for palliative care at this time. Returned to discuss POLST: see DPOA/Advanced Directives/POLST section of plan. Total time 65 minutes; >50% face to face with patient and/or family, providing counselling regarding plans and recommendations, and in care coordination with his/her medical teams. Of this 30 minutes were spent counseling for advanced care planning, completion of POLST, with the patient/the patients family/the surrogate decision maker. Matty Lopez Aug 22, 2016 12:00
--- NOTE | 2016-08-22 12:15 | NUR ---
Return From Radiation Pt returned from radiation therapy in wheelchair; BP slightly elevated, HR normal, c/o back pain 6/10 with movement during travel and requesting PO Tylenol for pain, given. Will continue to monitor with frequent rounds. MD Palliative team notified patient and daughter back in room at bedside.
[2016-08-22 12:17] VITALS: BP 152/77; PULSE 64; RESP 16; O2SAT 97
--- NOTE | 2016-08-22 13:25 | NUR ---
NUTRITION FOLLOW-UP: ASSESS: 81 YO M admit with abdominal/back pain and h/o prostate CA with abdominal CT showing severe metastatic disease, palliative care following for pain management. Pt receiving radiation therapy. Pt with variable PO intake. PMHX: Prostate CA, HTN DIET: General. PO intake refusal-75%. LABS:Cr 0.68 MEDICATION: Reviewed. GI: No BM noted. SKIN: Chet 19 WEIGHT: 68.5 kg, BMI 23.7 kg/m2. Admit weight: 62.4 kg, BMI 21.0 ESTIMATED NEEDS: CANCER Calories:3481-3408 kcal/day (30-35 kcal/kg BW) Protein: 60-95 g/day (1.0-1.5 g/kg BW) NUTRITION DIAGNOSIS: (1) Increased energy/protein needs related to increased demand for nutrients as evidenced by Cancer dx - PERSISTS. (2) Inadequate oral intake related to inability to consume sufficient energy, as evidenced by poor PO since admit x 4 D.- IMPROVING. INTERVENTION: (1) Continue current diet and supplements as ordered. MONITOR/EVALUATE: Diet tolerance, PO intake, labs, GI, POC, nutrition status. Follow per moderate nutrition risk guidelines.
--- NOTE | 2016-08-22 13:34 | NUR ---
Social Work-readiness for discharge: Data:EMR reviewed. Pt is on day 7 of hospitalization for hyponatremia per H&P. Pt is not medically stable anticipate tomorrow. PT continues to recommend SNF and pt has RN needs. SW met with pt's daughter Frances and provided her with update on facilities. Frances states that they have changed their mind to [facility] (1st choice) due to proximity to radiation. SW updated that all facilities have accepted. Daughter happy about [facility]. Paperwork and PASRR in the chart. SW will continue to follow. Assessment:Pt who would benefit from SNF. Plan:[facility] (1st choice) has accepted pt with Dr. Schreiber to follow. Paperwork and PASRR in the chart. SW will continue to follow. LATOYA Lorenzana
--- NOTE | 2016-08-22 15:27 | PCM.PNMED ---
Subjective Date of Service Aug 22, 2016 Subjective Feels like his pain is reasonably controlled. 2 early to say if he is ready to discharge. No chest pain, no dyspnea Exam Vital Signs Vital Sign - Last Date Time Temp Pulse Resp B/P Pulse Ox O2 Delivery O2 Flow Rate FiO2 08/22/16 12:17 36.8 64 16 152/77 97 Room Air 08/16/16 06:13 2.00 Intake and Output 08/21/16 08/21/16 08/22/16 Cumulative From/Thru 15:00 23:00 07:00 08/14/16 19:29 - 08/22/16 06:52 Intake Total 702 ml 708 ml 42603 ml Output Total 1300 ml 8425 ml Balance 702 ml -592 ml 4913 ml Intake Oral 702 ml 708 ml 7886 ml IV Total 5452 ml Output Urine Total 200 ml 7325 ml Stool Total 1100 ml 1100 ml # Voids 6 34 # Bowel Movements 0 Exam Gen.- A+ O 3 no apparent distress. Eyes- open conjunctiva clear, pupils equal nonicteric ENT- ears normal, nose normal Neck- supple/trach midline CVS-normal rate Lungs- normal rate, no accessory muscle usage GI-flat Musc- moving 4 no obvious deformity Neuro- cranial nerves II through XII intact to gross examination, nonfocal Skin- warm and dry, no rashes/lesions/wounds noted Psych- pleasant and appropriate, Lab and Diagnostics Result Diagram: 08/22/16 0553 08/22/16 0553 X-Rays, CTs and MRIs PROCEDURE: X-RAY ACUTE ABDOMINAL SERIES IMPRESSION: Normal bowel gas pattern. Moderate amount of stool in colon. Dictated by: Gabbie Sommer M.D. on 08/14/2016 at 21:58 Approved by: Gabbie Sommer M.D. on 08/14/2016 at 22:01 [facility] Diagnostic [place] [address] Patient Name: VALENCIA HAN MR#: [id number] [place] [facility] [place] Phys: Racquel Forman DO Date of Service: 08/20/16 1519 PROCEDURE: CT ABDOMEN AND PELVIS WITH CONTRAST ([id number]) INDICATIONS: 81 year-old male with history of prostate cancer and constipation presenting for evaluation of possible rectal mass. TECHNIQUE: After the administration of oral and intravenous contrast, 5 mm thick sections acquired from the diaphragms to the symphysis. 5 mm thick coronal and sagittal reformats were performed. For radiation dose reduction, the following was used : automated exposure control, adjustment of mA and/or kV according to patient size. COMPARISON: [facility], CT, CT ABD PELVIS W CON, 08/15/2016, 1:10. FINDINGS: Image quality: Excellent. ABDOMEN: Lung bases: There are small bilateral pleural effusions with mild compressive atelectasis. Heart size is normal. Solid organs: There is hypoattenuation of the liver consistent with fatty infiltration. 2 hepatic cysts are redemonstrated. Gallbladder is within normal limits without calcified gallstones. Biliary system is non-dilated. Pancreas enhances normally. No adrenal nodules. Kidneys are normal in size and enhancement, without hydronephrosis. Peritoneum and bowel: Stomach, small bowel, and colon loops are normal in wall thickness. No definite intraluminal mass lesion identified. There is moderate colonic stool demonstrated. No free fluid or air. Nodes and vessels: No retroperitoneal or mesenteric adenopathy. Aorta and inferior vena cava are normal in caliber. Miscellaneous: No ventral hernias. PELVIS: Genitourinary: Bladder wall thickness is normal. Miscellaneous: No inguinal hernias or adenopathy. Bones: There are innumerable sclerotic lesions redemonstrated in the visualized osseous structures as well as scattered lytic lesions including within the T10 vertebral body. Findings are consistent with metastatic disease and are similar to the prior study. IMPRESSION: 1. No definite intraluminal mass lesions demonstrated within the colon. 2. Diffuse osseous metastatic disease redemonstrated. The Dictated by: Juno Lux M.D. on 08/20/2016 at 19:50 Approved by: Juno Lux M.D. on 08/20/2016 at 19:59 [facility] Diagnostic [place] [address] Patient Name: VALENCIA HAN MR#: [id number] [place] [facility] [place] Phys: Racquel Forman DO Date of Service: 08/20/16 1519 PROCEDURE: CT ABDOMEN AND PELVIS WITH CONTRAST ([id number]) INDICATIONS: 81 year-old male with history of prostate cancer and constipation presenting for evaluation of possible rectal mass. TECHNIQUE: After the administration of oral and intravenous contrast, 5 mm thick sections acquired from the diaphragms to the symphysis. 5 mm thick coronal and sagittal reformats were performed. For radiation dose reduction, the following was used : automated exposure control, adjustment of mA and/or kV according to patient size. COMPARISON: [facility], CT, CT ABD PELVIS W CON, 08/15/2016, 1:10. FINDINGS: Image quality: Excellent. ABDOMEN: Lung bases: There are small bilateral pleural effusions with mild compressive atelectasis. Heart size is normal. Solid organs: There is hypoattenuation of the liver consistent with fatty infiltration. 2 hepatic cysts are redemonstrated. Gallbladder is within normal limits without calcified gallstones. Biliary system is non-dilated. Pancreas enhances normally. No adrenal nodules. Kidneys are normal in size and enhancement, without hydronephrosis. Peritoneum and bowel: Stomach, small bowel, and colon loops are normal in wall thickness. No definite intraluminal mass lesion identified. There is moderate colonic stool demonstrated. No free fluid or air. Nodes and vessels: No retroperitoneal or mesenteric adenopathy. Aorta and inferior vena cava are normal in caliber. Miscellaneous: No ventral hernias. PELVIS: Genitourinary: Bladder wall thickness is normal. Miscellaneous: No inguinal hernias or adenopathy. Bones: There are innumerable sclerotic lesions redemonstrated in the visualized osseous structures as well as scattered lytic lesions including within the T10 vertebral body. Findings are consistent with metastatic disease and are similar to the prior study. IMPRESSION: 1. No definite intraluminal mass lesions demonstrated within the colon. 2. Diffuse osseous metastatic disease redemonstrated. The Dictated by: Juno Lux M.D. on 08/20/2016 at 19:50 Approved by: Juno Lux M.D. on 08/20/2016 at 19:59 Assessment & Plan 81 year old male with prostate cancer presents to the ED via EMS 08/15 with a ten -day history of low back pain 08/22 patient feeling better today meeting him for the first time medically complex. day#09/05 XRT to be complete palliative dose 08/30. Patient could discharge from a medical perspective but I suspect it is too far from [place] to come for daily radiation therapy. He is standby assist for ambulation. #Back pain- MRI 08/15 shows significant T-spine pathology secondary to metastatic disease -XRT 08/15 Rad-Onc [facility]. daily week days -08/30 10 doses 4 complete # Hypokalemia, acute, present on admission, active. -Corrected with KCl 10 mEq 2 times/day # Obstipation: No BM charted since admission 08/15 - So far we tried laxatives, osmotic agents, enema, opioid antagonist injection , CT contrast, rectal suppositories, mag citrate without much result -Bowels moved 5. Hypertension, chronic, stable. - Elevated BP likely secondary to pain. -Continue home meds: HCTZ 25mg daily and Valsartan. 6. Prostate cancer, chronic, active. - Follow up with oncology as outpatient. - Continue Tamsulosin 7. Urinary incontinence, chronic, presume stable. - Continue Oxybutynin Disposition: We will discharge patient back to his daughter's house in [facility] GI Prophylaxis: H2 amilcar VTE Prophylaxis: Sub-Q Heparin (Unfractionated), SCDs VTE Mechanical Devices: Intermittant Pneumatic CD Resuscitation Status: DNR/DNI:Do Not Resuscitate/Intubate Epi Mojica MD Aug 22, 2016 15:27 4. Right lower quadrant abdominal pain, acute, present on admission, active: Moderate amount of stool noted on his CT scan - Normal abdominal XR with no sign of obstruction. Active bowel sound on exam. - Likely secondary to referral pain from bone metastases. 5. Hypertension, chronic, stable. - Elevated BP likely secondary to pain. -Continue home meds: HCTZ 25mg daily and Valsartan. - Continue to monitor vital signs. 6. Prostate cancer, chronic, active. - Follow up with oncology as outpatient. - Continue Tamsulosin 7. Urinary incontinence, chronic, presume stable. - Continue Oxybutynin Disposition: We will discharge patient back to his daughter's house in [facility] following his radiation therapy GI Prophylaxis: H2 amilcar VTE Prophylaxis: Sub-Q Heparin (Unfractionated), SCDs VTE Mechanical Devices: Intermittant Pneumatic CD Resuscitation Status: DNR/DNI:Do Not Resuscitate/Intubate Epi Mojica MD Aug 22, 2016 15:27
[2016-08-22 16:45] VITALS: BP 134/66; PULSE 74; RESP 16; O2SAT 96
[2016-08-22 20:14] VITALS: BP 134/70; PULSE 73; RESP 18; O2SAT 96
[2016-08-23] MEDS: Heparin 5,000 Unit/mL Inj SUBQ SCH ×2 (00:55→08:10)
[2016-08-23 05:33] VITALS: BP 132/67; PULSE 84; RESP 16; O2SAT 99
--- NOTE | 2016-08-23 06:10 | NUR ---
Activity Pt up SBA, continues to be unsteady and requires Arbon bed alarm for safety. Pt has denied pain all shift and was able to sleep intermittently throughout night. A/O x3 this shift.
[2016-08-23 07:46] VITALS: BP 130/75; PULSE 70; RESP 16; O2SAT 96
[2016-08-23] MEDS: ABIRATERONE PO SCH (08:05)
[2016-08-23] MEDS: Fluticasone 0.05% 15 Spray/2 Gm 16 Gm Nasal Spray NASAL SCH (08:07)
[2016-08-23] MEDS: Senna-Docusate 8.6-50 mg Tablet PO SCH (08:08)
[2016-08-23] MEDS: Omega-3 Fatty Acids 1,000 mg Capsule PO SCH (08:10)
--- NOTE | 2016-08-23 09:24 | PCM.PALLBR ---
Palliative Care Recommendation The patient is a very pleasant 81-year-old gentleman with a history of prostate cancer diagnosed and treated 18 years ago. This was reportedly in remission until 1-1/2 years ago when he was found to have metastatic disease. 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 The most severe lesion is at T10 vertebral body which shows a large mass up to 6 cm with epidural and paraspinal extension which may be largely responsible for his pain in the bilateral lower back region. [facility] [place] medical records: Mr. Ross started seeing Dr. Susan Arreaga 2014 for his prostate cancer recurrence at [facility], and was treated only with ADT (androgen deprivation therapy) in the form of leuprolide injections which worked for some months. Then the cancer stopped responding to it, and he was started on Zytiga (abiraterone acetate). He has not had prior radiation therapy per these [facility] records. Dr. Marek Nettles (radiation oncology) has been consulted and radiation therapy was started on 08/17 with a plan for 10 sessions of radiation therapy, today 08/23, is day 5/10 sessions. It is unclear whether the patient can return home or will stay in the hospital during this course of treatment. Summary of palliative recommendations: Symptom management: 08/23 PAIN: no pain issues overnight. MAR reviewed: No breakthrough pain meds needed last night. No use of PRN breakthrough pain meds overnight or this morning. Most pain ratings 3-5/10 over weekend. 1. Continue fentanyl 50 mcg/hr, change q 72 hours for long-acting pain medication. Today is day 6 at this dose. Should be discharged on this medication. 2. For breakthrough pain: oxycodone IR to 10-20mg po q 3 hours for breakthrough pain. 10mg for 1-4/10 pain/15mg for 5-7/10 pain/20mg for 8-10/10 pain. 3. Continue dexamethasone 4mg po q day for bone metastases pain and inflammation. PROCEDURE-related PAIN: Patient does have 8+/10 pain when being transported and during XRT --ADD premedication regime for days that patient receives XRT: --975-1000mg of Tylenol 1-2 hours before transport --15 mg oxycodone IR 30-60 min before transport. CONSTIPATION: patient finally had results this weekend after Go-lightly was added to the regime of miralax, Senna-S, suppositories. Patient now following with a bowel regime and family will be taught how to escalate the plan if no BM in 3 days. Relistor used only once -- but it didn't work when tried this admission (what worked was a warm water enema). Palliative Care will round today after patient returns from radiation to review effectiveness of pain relief and check on whether bowel regime is understood and tolerated. 1. Continue bowel regime with: -- senna-S BID daily, add third dose after no BM for 2 days (Senna-S 1 po TID), Increase to 2 Senna-S 2 po TID for no BM in 3 days. --on third day with no BM, also add miralax, --Seek outpatient palliative care for bowel management as well as pain control. Goals of Care: Dr. Ramires discussed prognosis at bedside with patient, daughters Salima and Brianna, last week. Everyone understands that Mr. Ross has a terminal illness and the radiation is just to resolve pain and relieve/ prevent spinal cord compression. 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 (see below for additional info re documentation) Disposition: The Diploma Medical Assistant was in our meeting today to discuss his acceptance with Tatiana Martin. The family had wanted him to be at [place] but then realized that it did not make sense to increase his transport time to XRT, as this is already an issue for him in terms of comfort. They are accepting of Tatiana Martin; this is likely to happen today. DPOA/Advanced Directives/POLST: The patient has completed AD and POLST- equivalent documents in [place] and plans to return there on recovery. He is clear that his Code Status is DNR/DNI --On 08/22, TOMA Lopez met with the patient and his daughter to discuss the current advance directives that are in place and to explore the advantage of the POLST form. We reviewed his current documents as they are on the mitch Borrego's phone. As is turns out, the advance directive he has is somewhat vague about what treatments he might want in the case of his , or in the case of an acute condition. The patient is very clear about certain aspects of his care: he does NOT want CPR or intubation or any machines to prolong his life, including a feeding tube. He DOES want basic medical care for reversible conditions and agrees to hospitalization for antibiotics and other basic medical care to help him recover if this is possible. A [place] POLST is completed at this time to ensure that his wishes are followed on discharge from hospital while he remains in [place]. It states: DNAR/Allow Natural ; limited interventions with Yes to antibiotics for prolonging life, but NO to tube-feeding and NO to ICU level care. The patient verbally agrees to all this and directs his daughter to sign the POLST form today. Copies of the form are given to family and filed with palliative care, and the original is put is his chart for when he discharges to SNF. Family/emotional support: Brianna Vance (daughter on [place], [place]) [phone] Salima Narayan (daughter in [place]) [phone] Problems: (1) Prostate cancer Assessment & Plan: per medical and oncology teams Status: Acute ICD Code: C61 (2) Prostate cancer metastatic to bone Assessment & Plan: Undergoing XRT for pain management. Required high level interventions for pain control per radiation protection specialist. Status: Acute ICD Code: C61 (3) Goals of care, counseling/discussion Assessment & Plan: See new POLST completed today. Continue to explore the prior AD to ensure these match the choices made on POLST. Status: Acute ICD Code: Z71.89 (4) Pain Assessment & Plan: Serial adjustments to pain regime by radiation protection specialist now appear to be working well, patient reports pain mostly under 5/ 10. Still increases to 8/10 with XRT and transport. See orders. Status: Acute ICD Code: R52 (5) Palliative care by specialist Assessment & Plan: high level interventions for pain and constipation. Also completion of POLST, clarification of advance directives. Status: Acute ICD Code: Z51.5 End of Life Preferences patient has planned for palliative care in [place] when treatments are no longer providing benefit. Goals of Care control of symptoms, lengthening life with control of disease as long as treatments are not burdensome. Disposition unsure of where patient will be through the next 6 days of XRT--likely SNF. Pt will eventually go back home with dtr here on [place], plans to return to [place] when he is strong enough to make the trip. Resuscitation Status Resuscitation Status: DNR/DNI:Do Not Resuscitate/Intubate Limited Interventions: Medications and IV Fluid POLST Updates/Changes Previous POLST?: No Antibiotics: Use ABX if can Prolong Life Artificially Admin Nutrition: No Artifical Nutrition by Tube POLST Discussed with: Patient, Health Care Agent (DPOAHC) POLST Review Outcome: New Form Completed Total time 35 minutes; >50% face to face with patient and/or family, providing counselling regarding plans and recommendations, and in care coordination with his/her medical teams. I also spent an additional [ ] minutes counseling for advanced care planning with the patient/the patients family/the surrogate decision maker. Palliative Brief Note Date of Service Aug 23, 2016 . Pt today having day 5 of 10 XRT treatments. Met with patient on a.m. rounds. He reports that the treatments are painful to endure, but better with the pre- procedural pain meds started 08/22 by TOMA Lopez (see below). He feels that his constipation is better today. As Usual, the transport to radiation is by wheelchair, which is painful. He is best lying at about 20-30 degrees. The patient tried a pre-medication regime of tylenol 975-1000 mg around 9am, roughly 2 hours before transport for 11a.m. radiation, then a 15 mg dose of oxycodone IR 30-60 min before transport. Discussed with pharmacy and RN who both agree and will pass on. The pharmacist understands that the dose timing may need to be adjusted daily. The daughter Salima reports she still hasnt been able to connect with our CM advocate to settle issues related to his VA and Medicare benefits. She waited from 2-6pm yesterday in patient's room, and no one appeared. No further questions for palliative care at this time. Tory Ramires MD Aug 23, 2016 09:24 Disposition unsure of where patient will be through the next 6 days of XRT--likely SNF. Pt will eventually go back home with dtr here on [place], plans to return to [place] when he is strong enough to make the trip. Resuscitation Status Resuscitation Status: DNR/DNI:Do Not Resuscitate/Intubate Limited Interventions: Medications and IV Fluid POLST Updates/Changes Previous POLST?: No Antibiotics: Use ABX if can Prolong Life Artificially Admin Nutrition: No Artifical Nutrition by Tube POLST Discussed with: Patient, Health Care Agent (DPOAHC) POLST Review Outcome: New Form Completed Total time [ ] minutes; >50% face to face with patient and/or family, providing counselling regarding plans and recommendations, and in care coordination with his/her medical teams. I also spent an additional [ ] minutes counseling for advanced care planning with the patient/the patients family/the surrogate decision maker. Palliative Brief Note Date of Service Aug 23, 2016 Tory Ramires MD Aug 23, 2016 09:24
--- NOTE | 2016-08-23 10:36 | PCM.DIMED ---
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
--- NOTE | 2016-08-23 10:44 | PCM.DC.MED ---
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 Multiple expansile lytic lesions within the thoracic spine which are incompletely characterized given the lack of intravenous contrast. Unfortunately , the patient refused the contrast portion of the exam due to pain. 2. Expansile lesion at T10 with resultant severe canal stenosis and marked deformity of the cord. Cord signal abnormality in this region suggests myelomalacia. There is no definite intramedullary extension of tumor; however lack of intravenous contrast limits evaluation. If further characterization is warranted, contrast-enhanced MRI with analgesia or sedation may be helpful to characterize findings. 3. No other canal stenosis of the thoracic spine. 4. Severe left neuroforaminal narrowing at T10-T11. 5. Small pleural effusions. Dictated by: Valerie Chinchilla M.D. on 08/15/2016 at 19:34 PROCEDURE: CT ABDOMEN AND PELVIS WITH CONTRAST ([id number]) Bones: There are innumerable sclerotic lesions redemonstrated in the visualized osseous structures as well as scattered lytic lesions including within the T10 vertebral body. Findings are consistent with metastatic disease and are similar to the prior study. IMPRESSION: 1. No definite intraluminal mass lesions demonstrated within the colon. 2. Diffuse osseous metastatic disease redemonstrated. Approved by: Juno Lux M.D. on 08/20/2016 at 19:59 Brief History 81 year old male with prostate cancer, diagnosed and treated 18 years ago, presents to the ED via EMS with progressively worsening bilateral lower back pain and abdominal pain onset 1 1/2 weeks ago. He reports constant, sharp back pain that localizes in the lumbar area bilaterally due does not radiate else where. He also complains of dull bilateral lower abdominal pain, worse on the RLQ. He reports constipation, nausea, vomiting, abdominal pain, lower back pain , and loss of appetite. He passes gas intermittently, but no stool for a week. He attributes this to poor oral intake. He states that he can drink water just fine, but had 2 episodes of vomiting after drinking water in the last week. The patient denies hematuria, dysuria, hematochezia, chest pain, recent injury/ trauma, or other symptoms. He denies any chronic pain or similar symptoms in the past. Hospital Course 81 year old male with prostate cancer presents to the ED via EMS 08/15 with a ten -day history of low back pain 08/22 patient feeling better today meeting him for the first time medically complex. day#09/05 XRT to be complete palliative dose 08/30. Patient could discharge from a medical perspective but I suspect it is too far from [place] to come for daily radiation therapy. He is standby assist for ambulation. 08/23 back pain is controlled, bowels are moving, patient finishing a 10 day course of palliative radiation is going to [facility] today, then likely back to [place] to stay with his daughter #Back pain- MRI 08/15 shows significant T-spine pathology secondary to metastatic disease -XRT 08/15 Rad-Jay Nettles. daily week days -08/30 10 doses 4 complete -Patient started on a fentanyl patch 50 g every 3 days, oxycodone 10-20 mg every 3 hours as needed and is doing well # Hypokalemia, acute, present on admission, active. -Corrected with KCl 10 mEq 2 times/day # Obstipation: No BM charted since admission 08/15 - laxatives, osmotic agents, enema, opioid antagonist injection, CT contrast, rectal suppositories, mag citrate finally succeeded after several days -Bowels moved , continue an aggressive bowel regimen #Hypertension, chronic, stable. - Elevated BP likely secondary to pain. -Continue home meds: HCTZ 25mg daily, - Valsartan. Stopped SBP in the 120s 08/15 #Prostate cancer, chronic, active. - Follow up with oncology as outpatient. - Continue Tamsulosin #Urinary incontinence, chronic, presume stable. - Continue Oxybutynin #Disposition patient to DO NOT RESUSCITATE he was at home with his daughter he will temporarily be at [facility] while completing course of palliative radiation therapy Exam Vital Signs (Last) Date Time Temp Pulse Resp B/P Pulse Ox O2 Delivery O2 Flow Rate FiO2 08/23/16 07:46 36.6 70 16 130/75 96 Room Air Test 08/14/16 21:11 08/15/16 01:03 08/20/16 06:15 08/21/16 06:31 Lipase 30U/L (13-60) Hold [place] Top Tube Received (Received) Urine Color Yellow (YELLOW) Urine Appearance Clear (CLEAR,HAZY) Urine pH 7.0 (5.0-8.0) Urine Specific [place] 1.010 (1.003-1.035) Urine Protein Negativemg/dL (NEG,TRACE) Urine Glucose (UA) Negativemg/dL (NEGATIVE) Urine Ketones Negativemg/dL (NEGATIVE) Urine Occult Blood Negative (NEGATIVE) Urine Nitrite Negative (NEGATIVE) Urine Bilirubin Negative (NEGATIVE) Urine Urobilinogen 1.0mg/dL (NORMAL) Urine Leukocyte Esterase Negative (NEGATIVE) Urine RBC 0-2/hpf (0-2) Urine WBC 0-5/hpf (0-5) Urine Epithelial Cells Occasional/hpf (NONE-MOD) Urine Crystals None seen (NONE SEEN) Urine Bacteria Few/hpf (NONE-FEW) Urine Hyaline Casts None/lpf (NONE) Urine Granular Casts None seen (NONE SEEN) Urine Waxy Casts None seen (NONE SEEN) Urine Red Blood Cell Casts None seen (NONE SEEN) Urine White Blood Cell Casts None seen (NONE SEEN) Urine Mucus None seen (None Seen) Urine Trichomonas None seen (NONE SEEN) Urine Yeast None (NONE SEEN) Urinalysis Comment None Urine Culture Reflexed Not indicated Magnesium Level 2.2mg/dL (1.6-2.6) Total Bilirubin 0.8mg/dL (0.0-1.2) Aspartate Amino Transf (AST/SGOT) 23U/L (0-50) Alanine Aminotransferase (ALT/SGPT) 17U/L (0-44) Alkaline Phosphatase 346U/L (25-160) Total Protein 5.7g/dL (6.4-8.4) Albumin 3.7g/dL (3.4-5.0) Test 08/22/16 05:53 White Blood Count 5.0th/mm3 (3.8-10.1) Red Blood Count 3.95mil/mm3 (4.40-5.80) Hemoglobin 11.6g/dL (13.8-17.2) Hematocrit 34.5% (41.0-50.0) Mean Corpuscular Volume 87.3fL (81-100) Mean Corpuscular Hemoglobin 29.4pg (27.0-35.0) Mean Corpuscular Hemoglobin Concent 33.6% (32.0-37.0) Red Cell Distribution Width 13.2% (12.3-15.4) Platelet Count 206bil/L (150-400) Neutrophils (%) (Auto) 66.7% (40-74) Lymphocytes (%) (Auto) 20.3% (14-46) Monocytes (%) (Auto) 9.4% (4-12) Eosinophils (%) (Auto) 2.2% (0-5) Basophils (%) (Auto) 0.2% (0-3) Sodium Level 136mEq/L (134-144) Potassium Level 3.8mEq/L (3.5-5.2) Chloride Level 97mEq/L (97-108) Carbon Dioxide Level 27mmol/L (18-29) Blood Urea Nitrogen 11mg/dL (8-27) Creatinine 0.68mg/dL (0.76-1.27) Estimat Glomerular Filtration Rate 118mL/min (>59) Glucose Level 89mg/dL (60-99) Calcium Level 9.0mg/dL (8.5-10.1) Discharge Medications Discharge Medications ([Fentanyl]) 1 PATCH PATCH 10 PATCH TOPICAL Q3D Prescribed by: BREA SAPP MD Abiraterone Acetate (Zytiga) 250 Mg Tablet 1,000 MG PO DAILY (Reported) Aspirin (Aspirin) 81 Mg Tablet 81 MG PO DAILY (Reported) Fluticasone Propionate (Fluticasone Propionate) 50 Mcg/Actuation [place].susp 15.8 ML NS DAILY (Reported) Hydrochlorothiazide (Hydrochlorothiazide) 25 Mg Tablet 25 MG PO DAILY (Reported ) Latanoprost (Latanoprost) 2.5 Ml Drops 1 GTT BOTH_EYES HS (Reported) [place]-3 Fatty Acids (Fish Oil) 500 Mg Capsule.dr 2,000 MG PO BID (Reported) Oxybutynin Chloride (Oxybutynin Chloride) 5 Mg Tablet 5 MG PO TID (Reported) Potassium Chloride (Potassium Chloride) 20 Meq Tab.er.prt 40 MEQ PO DAILY ( Reported) TAKE WITH FOOD Prednisone (PredniSONE) 5 Mg Tab 5 MG PO BID (Reported) Simvastatin (Simvastatin) 40 Mg Tablet 40 MG PO HS (Reported) Tamsulosin (Flomax) 0.4 Mg Capsule 0.8 MG PO HS (Reported) As needed Carboxymethylcellulose Sodium (Lubricant Eye Drops) 15 Ml Drops 15 ML BOTH_EYES QID PRN PRN For Eye Irritation (Reported) Saliva Stimulant Agents Comb.3 (Biotene Moisturizing Mouth) 44.3 Ml [place] 44.3 ML MM QID PRN PRN dry mouth (Reported) oxyCODONE (oxyCODONE) 5 Mg Tablet 10-20 MG PO Q3 PRN PRN For Moderate Pain Prescribed by: BREA SAPP MD Followup Plan Follow-up plan Patient finishing radiation therapy and staying at [facility] till XRT completed 08/29 Discharge Diet: No restrictions Discharge Activity: No restrictions Follow-up Provider: Ayse Silver DO Follow-up with PCP in: Other (call for appointment as needed probably 1 month for pain medication refill) Provider: Marek Nettles MD Follow-up in: Other (through Tuesday 08/29 to complete 10 day course of palliative radiation) Time spent Greater than 30 minutes copies to: Ayse Silver Andris E MD Aug 23, 2016 10:44
[2016-08-23] MEDS ORDERED: Fentanyl TOPICAL (10:52)
[2016-08-23] MEDS ORDERED: OXYC5TAB72 PO (10:52)
--- NOTE | 2016-08-23 11:26 | NUR ---
RADIATION/TRANSFER Patient left for radiation at 1000 today, premedication pain medications given, patient returned at 1100 rates pain (back) 09/05. Resting comfortably in chair and visiting with family. Plan is to have patient transferred to [facility] so he can continue outpatient radiation here in [facility]. Addendum: 08/23/16 at 1325 by ABDULAZIZ MARIA RN TRANSFER Patient transferred to [facility] at 1315, left in wheelchair with daughter, Tatiana Martin to do transport. Home medication accompanied patient, report given to Tatiana at [facility] by phone, patient denies pain, and shortness of breath. Radiation treatment schedule provided through 08/29.
--- NOTE | 2016-08-23 11:39 | NUR ---
Faxed orders to Tatiana Martin, copy placed in chart and left message on admissions phone and asked also for transportation. ROUTE SALES DRIVER will update daughter when we have exact time. Addendum: 08/23/16 at 1149 by RICHARD PEARSON CM Tatiana Martin can order picker/assembler at 1300 Updated ROUTE SALES DRIVER and RN
--- NOTE | 2016-08-23 12:31 | NUR ---
Social Work- Discharge Data:EMR reviewed. Pt is on day 8 of hospitalization for hyponatremia per H&P. Pt is medically stable for discharge. UR Specialist spoke with Aleksandra, admissions at [facility], who is agreeable to accepting patient today. Aleksandra arranged transportation via cabulance at 1300. UR Specialist created packet and faxed orders. SW updated pt at bedside, called daughter Frances to inform her of discharge. RN, UC, pt/family and [facility] all updated and agreeable to plan. Assessment: Pt who would benefit from SNF. Plan:Pt to discharge to [facility] today via cabulance at 1300. RN, UC, pt/family and [facility] all updated and agreeable to plan. Laurel Gentile MSW
[2016-08-24] MEDS ORDERED: Polyethylene Glycol (PEG) 17 Gm Powder PO SCH (13:15)
--- NOTE | 2016-08-26 11:12 | NUR ---
Palliative care note D/A: POLST completed on 08/22/16. It notes that pt is DNR/DNI with limited medical interventions. Pt also elected to use antibx if life can be prolonged and to not use medically assisted nutrition by tube. This POLST faxed to Tatiana Martin today. P: No further need for palliative care to follow. Jacquelin AGARWAL, CCM
== END 2016-08-23 13:10 | DRG 543 ==
LOC: SED 19:09 → EDBD 19:09 → OSC 08-15 00:45 → OBSVTOIN 08-15 00:45 → OSC 08-15 01:30
PROVIDERS: ADMIT Internal Medicine; ATTEND Internal Medicine
PROC: DP0C2ZZ Beam Radiation of Other Bone using Photons >10 MeV (ICD-10-PCS; principal; 2016-08-17)
PROC: DP0C2ZZ Beam Radiation of Other Bone using Photons >10 MeV (ICD-10-PCS; 2016-08-18)
PROC: DP0C2ZZ Beam Radiation of Other Bone using Photons >10 MeV (ICD-10-PCS; 2016-08-19)
PROC: DP0C2ZZ Beam Radiation of Other Bone using Photons >10 MeV (ICD-10-PCS; 2016-08-22)
PROC: DP0C2ZZ Beam Radiation of Other Bone using Photons >10 MeV (ICD-10-PCS; 2016-08-23)
DX: C79.51 Secondary malignant neoplasm of bone (principal); E87.1 Hypo-osmolality and hyponatremia; E87.6 Hypokalemia; C61 Malignant neoplasm of prostate; I10 Essential (primary) hypertension; K59.00 Constipation, unspecified; Z79.52 Long term (current) use of systemic steroids; Z79.82 Long term (current) use of aspirin; R32 Unspecified urinary incontinence; Z66 Do not resuscitate